=== PATIENT | female | born 1945 | race Caucasian/White ===

== ENCOUNTER 2024-09-17 19:38 | Emergency (ER) | payer OTHER, MEDICAID ==
[~2024-09-17] VITALS: Ht 157.5 cm; Wt 63.6 kg
--- NOTE | 2024-09-17 20:18 | ED.PDOC ---
Musculoskeletal HPI Comments 79-year-old female brought in by EMS presents with a chief complaint of joint pain and right sided facial pain s/p fall. Patient was standing making dinner in the kitchen when he turned to move and had a mechanical fall over a chair. Patient is now complaining of bilateral knee pain, right arm and shoulder pain. Patient did hit the right side of her face from the fall and has some significant ecchymosis on the face. Patient denies LOC. No other symptoms or modifying factors present at this time. No active bleed. Chief Complaint: Fall Injury Time Seen by MD: 20:15 Reviewed Notes: Nurses Notes, Medications, Allergies Allergies: Coded Allergies: NO KNOWN ALLERGIES (Unverified , 09/17/24) Information Source: Patient, Emergency Med Personnel Mode of Arrival: EMS Location: Right, Bilateral Extremity Location: Arm, Knee, Other (Face) Timing: Minutes Prehospital treatment: None Severity: Moderate Able to Move Extremity: No Bear Weight: No Pain: Moderate Hand Dominance: Right Mechanism: Blunt Trauma Circumstances: Fall Onset of Symptoms: After Trauma Symptoms: Swelling, Pain DVT Risk Factors: NONE Last Tetanus: Unknown Associated signs and symptoms: Shoulder pain, Arm pain, Laceration, Knee pain Past Medical History PAST MEDICAL HISTORY: Denies Surgical History: Denies all surgeries AUTOMOTIVE PARTS PERSON History: No Pertinent AUTOMOTIVE PARTS PERSON History Family History Family History: Reviewed,noncontributory to illness, No family hx of Cancer, No family hx of DM, No family hx of Heart debi, No family hx of HTN, No family hx ofKidney debi, No family hx of Liver debi, No family hx of Lung debi, No family hx of Stroke Social History Smoker: Non-Smoker Alcohol: Denies ETOH Use Drugs: Denies Drug Use Lives In: Home Constitutional: denies: chills, diaphoresis, fatigue, fever, malaise, sweats, weakness, others EENTM: reports: others (Right-sided facial pain); denies: blurred vision, double vision, ear bleeding, ear discharge, ear drainage, ear pain, ear ringing, eye pain, eye redness, hearing loss, mouth pain, mouth swelling, nasal discharge, nose bleeding, nose congestion, nose pain, photophobia, tearing, throat pain, throat swelling, voice changes Respiratory: denies: cough, hemoptysis, orthopnea, SOB at rest, shortness of breath, SOB with excertion, stridor, wheezing, others Cardiovascular: denies: chest pain, dizzy spells, diaphoresis, Dyspnea on exertion, edema, irregular heart beat, left arm pain, lightheadedness, palpitations, PND, syncope, others Gastrointestinal: denies: abdomen distended, abdominal pain, blood streaked bowels, constipated, diarrhea, dysphagia, difficulty swallowing, hematemesis, melena, nausea, poor appetite, poor fluid intake, rectal bleeding, rectal pain, vomiting, others Genitourinary: denies: abnormal vagina bleeding, burning, dyspareunia, dysuria, flank pain, frequency, hematuria, incontinence, pain, , vagina discharge, urgency, others Neurological: denies: dizziness, fainting, headache, left sided numbness, left sided weakness, numbness, paresthesia, pre-existing deficit, right sided numbness, right sided weakness, seizure, speech problems, tingling, tremors, weakness, others Musculoskeletal: reports: joint pain (BILATERAL KNEE PAIN, RIGHT humeral and shoulder pain); denies: back pain, gout, joint swelling, muscle pain, muscle stiffness, neck pain, others Integumetry: reports: laceration (To lateral aspect of the right eye region); denies: bruises, change in color, change in hair/nails, dryness, lesions, lumps, rash, wounds, others Allergic/Immunocompromised: denies: Difficulty Healing, Frequent Infections, Hives, Itching, others Hematologic/Lymphatic: denies: anemia, blood clots, easy bleeding, easy bruising, swollen glands, others Endocrine: denies: excessive hunger, excessive sweating, excessive thirst, excessive urination, flushing, intolerance to cold, intolerance to heat, unexplained weight gain, unexplained weight loss, others Psychiatric: denies: anxiety, bipolar disorder, depression, hopeless, panic disorder, schizophrenia, sleepless, suicidal, others All Other Systems: Reviewed and Negative Physical Exam General Appearance: Moderate Distress (Do global body pain concerns.), Normal HEENT: Head (Patient displays significant ecchymosis and edema throughout the right eye region with a 2 cm lateral shallow laceration noted. Edema is extensive and limits my globe evaluation. No active bleed.), Normal ENT Inspection, Pharynx Normal, TMs Normal Neck: Full Range of Motion, Non-Tender, Normal, Normal Inspection Respiratory: Chest Non-Tender, Lungs Clear, No Accessory Muscle Use, No Respiratory Distress, Normal Breath Sounds Cardiovascular: No Edema, No JVD, No Murmur, No Gallop, Normal Peripheral Pulses, Regular Rate/Rhythm Breast Exam: Deferred Gastrointestinal: No Organomegaly, Non Tender, No Pulsatile Mass, Normal Bowel Sounds, Soft Genitalia: Deferred Pelvic: Deferred Rectal: Deferred Extremities: Other (Right humerus and right shoulder diffusely tender to palpation with significant reduced range of motion. Mild developing ecchymosis noted to anterior aspect of the region. No definitive crepitus. Bilateral knees were relatively unremarkable and evaluation. No significant ecchymosis or edema. [id number] reduced range of motion at left knee. Distal neurovascularly intact bilaterally.) Musculoskeletal : Apperance: Normal Neurologic: Alert, No Motor Deficits, Normal Affect, Normal Mood, No Sensory Deficits Cerebellar Function: Normal Reflexes: Normal Skin: Dry, Normal Color, Warm Lymphatic: No Adenopathy Was a procedure done? Was a procedure done?: No Differential Diagnosis EXT Differential Diagnosis: Other (Facial fracture, facial contusion, intracranial hemorrhage, subarachnoid hemorrhage, subdural hematoma, skull fracture, shoulder fracture, humeral neck fracture, shoulder contusion, knee contusion, knee fracture) X-Ray, Labs, Meds, VS Vital Signs Date Time Temp Pulse Resp B/P (MAP) Pulse Ox O2 Delivery O2 Flow Rate FiO2 09/17/24 20:57 51 13 94 Room Air* 0 21 09/17/24 20:57 98.5 51 13 149/61 (90) 98.5 09/17/24 19:53 51 09/17/24 19:45 97.4 53 16 128/74 (92) 94 Lab Test 09/17/24 20:00 Range/Units White Blood Count 3.7 L 4.4-10.8 10^3/uL Red Blood Count 3.82 L 4.0-5.20 10^6/uL Hemoglobin 10.4 L 12.2-16.2 g/dL Hematocrit 31.3 L 36.0-46.0 % Mean Corpuscular Volume 82.0 80.0-100.0 fL Mean Corpuscular Hemoglobin 27.2 L 28.0-32.0 pg Mean Corpuscular Hemoglobin Concent 33.2 32.0-36.0 g/dL Red Cell Distribution Width 15.3 H 11.8-14.3 % Platelet Count 208 140-450 10^3/uL Mean Platelet Volume 8.2 6.9-10.8 fL Neutrophils (%) (Auto) 54.8 37.0-80.0 % Lymphocytes (%) (Auto) 28.6 10.0-50.0 % Monocytes (%) (Auto) 10.9 0.0-12.0 % Eosinophils (%) (Auto) 4.6 0.0-7.0 % Basophils (%) (Auto) 1.1 0.0-2.0 % Neutrophils # (Auto) 2.0 1.6-8.6 10 ^3/uL Lymphocytes # (Auto) 1.1 0.4-5.4 10 ^3/uL Monocytes # (Auto) 0.4 0-1.3 10 ^3/uL Eosinophils # (Auto) 0.2 0-0.8 10 ^3/uL Basophils # (Auto) 0 0-0.2 10 ^3/uL Nucleated Red Blood Cells 0.1 % Sodium Level 136 136-145 mmol/L Potassium Level 3.6 3.5-5.1 mmol/L Chloride Level 102 98-107 mmol/L Carbon Dioxide Level 27 20-31 mmol/L Anion Gap 7 5-15 Blood Urea Nitrogen 17 9-23 mg/dL Creatinine 0.73 0.550-1.02 mg/dL Glomerular Filtration Rate Calc 83 >90 mL/min BUN/Creatinine Ratio 23.3 H 10.0-20.0 Serum Glucose 135 H 74-106 mg/dL Calcium Level 9.3 8.7-10.4 mg/dL Current Medications Medications (Trade) Dose Ordered Sig/Michelle Route Start Time Stop Time Status Last Admin Ondansetron HCl (Zofran) 4 mg ONCE ONCE IV 09/17/24 21:30 09/17/24 21:33 DC 09/17/24 21:39 X-Ray, Labs, Meds, VS Comment All studies performed the ED were evaluated by me personally. Laboratories were unremarkable for any systemic process. Imaging studies revealed a slightly impacted fracture of the surgical neck of the right humerus. Additionally, a mildly displaced fracture of the patella on the left knee is noted. Femur, tibia and fibula appear intact. Most concerning is a right-sided orbital fracture through the medial and lateral wall as well as floor involvement. Opacification of the right maxillary sinuses seen without definitive cribriform plate involvement. Due to the nature of the right eye concerns, patient will need to be transferred to higher level of care. We contacted [facility] and I spoke with Dr. Rojas. Advised him of patient presentation as well as laboratory and imaging findings. He agreed to accept the patient as a transfer to higher level of care. Patient will be provided with a left knee immobilizer and right shoulder splint prior to transfer. Pain has been managed well with the facility. Time of 1ST Reevaluation: 22:20 Reevaluation 1ST: Improved Consultation: PCP Patient Education/Counseling: Diagnosis, Treatment, Prognosis Family Education/Counseling: Diagnosis, Treatment, Prognosis Departure 1 Departure Time of Disposition: 22:20 Impression: Primary Impression: Humeral surgical neck fracture Additional Impressions: Patellar sleeve fracture of left knee Orbital fracture Facial laceration Facial contusion Disposition: 02 SHORT TERM HOSPITAL Condition: Fair Discharged With: Self, Relative Critical Care Note Critical Care Time?: No I personally scribed for KAUSHIK BARBA PAC ([email or web address]) on 09/17/24 at 20:18. Electronically submitted by Jonathan Bourne ([email or web address]). KAUSHIK BARBA PAC Sep 17, 2024 20:18
[2024-09-17 20:23] LABS: Basophils # (auto) 0 10 ^3/uL (0-0.2); Basophils % (auto) 1.1 % (0.0-2.0); Eosinophils # (auto) 0.2 10 ^3/uL (0-0.8); Eosinophils % (auto) 4.6 % (0.0-7.0); Hematocrit 31.3 % (36.0-46.0); Hemoglobin 10.4 g/dL (12.2-16.2); Lymphocytes # (auto) 1.1 10 ^3/uL (0.4-5.4); Lymphocytes % (auto) 28.6 % (10.0-50.0); Mean Corpuscular Hemoglobin 27.2 pg (28.0-32.0); Mean Corpuscular Hgb Conc. 33.2 g/dL (32.0-36.0); Monocytes # (auto) 0.4 10 ^3/uL (0-1.3); Monocytes % (auto) 10.9 % (0.0-12.0); Neutrophils % (auto) 54.8 % (37.0-80.0); Nucleated Red Blood Cells % 0.1 %; Platelet Count (auto) 208 10^3/uL (140-450); Red Blood Cells 3.82 10^6/uL (4.0-5.20); Red Cell Distribution Width 15.3 % (11.8-14.3); White Blood Cell 3.7 10^3/uL (4.4-10.8)
[2024-09-17 20:32] LABS: Anion Gap 7 (5-15); Carbon Dioxide 27 mmol/L (20-31); Chloride 102 mmol/L (98-107); Potassium 3.6 mmol/L (3.5-5.1); Sodium 136 mmol/L (136-145)
[2024-09-17 20:33] LABS: Calcium 9.3 mg/dL (8.7-10.4)
[2024-09-17 20:38] LABS: BUN/Creatinine Ratio 23.3 (10.0-20.0); Blood Urea Nitrogen 17 mg/dL (9-23)
[2024-09-17 20:41] LABS: Glucose 135 mg/dL (74-106)
[2024-09-17 20:57] VITALS: PULSE 51; RESP 13; O2SAT 94
--- NOTE | 2024-09-17 21:16 | DVH ---
CLINICAL INDICATION: Fall/trauma TECHNIQUE: 2 radiographic views of the right humerus were obtained. Comparison: None FINDINGS/IMPRESSION: Slightly displaced fracture of the neck of the proximal right humerus described on previous study. Th e mid and distal humerus are normal and intact. The visualized joint space is well maintained. The alignment is anatomical. There is no radiopaque foreign body.
--- NOTE | 2024-09-17 21:16 | DVH ---
CLINICAL INDICATION: Fall/trauma TECHNIQUE: 3 radiographic views of the right shoulder were obtained. Comparison: None FINDINGS/IMPRESSION: Fracture slightly impacted the surgical neck of the proximal right humerus The visualized joint space is well maintained. The alignment is anatomical. There is no radiopaque foreign body.
--- NOTE | 2024-09-17 21:17 | DVH ---
CLINICAL INDICATION: Fall/trauma TECHNIQUE: 3 radiographic views of the left knee were obtained. Comparison: None FINDINGS/IMPRESSION: Mildly displaced fracture of the patella is noted. The femur tibia and fibula appear intact. The visualized joint space is well maintained. The alignment is anatomical. There is no radiopaque foreign body.
--- NOTE | 2024-09-17 21:20 | DVH ---
XY R KNEE 3V XRAY, INDICATION: Fall/trauma TECHNICAL DATA: Frontal , oblique and lateral views were obtained of the right knee. COMPARISON: None Findings/impression: No acute fracture or dislocation. Moderate tricompartmental osteoarthritic degenerative changes. Mild chondrocalcinosis. No significant knee joint effusion. No radiopaque foreign objects.
--- NOTE | 2024-09-17 21:37 | DVH ---
EXAM: CT HEAD WITHOUT CONTRAST INDICATION: Fall/facial trauma TECHNIQUE: CT of the head without intravenous contrast. Radiation Dose Information: CT Dose: CTDI volume is 66.95 mGy. Dose-length product is 2426.19 mGy*cm The dose indicators for CT are the volume Computed Tomography (CT) Dose Index (CTDIvol) and the Dose Length Product (DLP), and are measured in units of mGy and mGy-cm, respectively. These indicators are not patient dose, but values generated from the CT scanner acquisition factors. The report includes radiation exposure data for exposures received during this examination. COMPARISON: None FINDINGS: There is no evidence of acute intracranial hemorrhage, extra-axial collection, mass effect, midline s hift, herniation or hydrocephalus. The ventricles, sulci and cisterns are age appropriate. The portillo-white differentiation is intact. Patchy periventricular and subcortical white matter hypoattenuation is nonspecific but may be related to small vessel ischemic disease. The visualized paranasal sinuses and mastoid air cells are clear. Marked soft tissue swelling over the right eye with small amount of subcutaneous emphysema in the sof t tissues lateral to the rim of the orbit. There appears to be a minimally displaced fracture of the lateral wall of the right orbit. The soft tissue swelling is preseptal. There is also fracture thro ugh the medial wall of the right orbit this appears to be inferior to the cribriform plate. There May also be a fracture through the floor of the right orbit there is opacification of the right maxillar y sinus. IMPRESSION: 1. No acute intracranial hemorrhage. 2. Preseptal soft tissue swelling over the right eye with subcutaneous air just lateral to the latera l rim of the orbit. There is a fracture through the medial and lateral wall the right orbit in possib ly the floor of the orbit. Opacification of the right maxillary sinus is seen. The cribriform plate a ppears uninvolved.
[2024-09-17] MEDS: ONDANSETRON HCL 4 MG/2 ML VIAL IV ONE ×2 (21:39→23:28)
--- NOTE | 2024-09-17 22:01 | DVH ---
HISTORY: Fall/facial trauma right-sided TECHNIQUE: Nonenhanced axial images through the facial bones with coronal and sagittal MPR. Radiation Dose Information: CT Dose: CTDI volume is 57 mGy. Dose-length product is 910 mGy*cm COMPARISON: None Findings/ IMPRESSION: Anterior and lateral fractures of the right maxillary sinus wall. There is near complete opacificatio n of the right maxillary sinus which is concerning for blood products. Mildly displaced fracture of t he right lateral and inferior orbital spence with associated postseptal thickening adjacent to the wal l fractures suggestive of hematoma. No evidence of extraocular muscle entrapment. No other obvious fr actures are identified. There is moderate to severe right periorbital soft tissue edema / hematoma wh ich extends inferiorly to the right face soft tissue. There is bilateral enlargement of the superior rectus muscle of the orbits. This may be related to an underlying metabolic or musculoskeletal proces s. Consider further evaluation with nonemergent contrast-enhanced MRI orbits. Moderate to severe deg enerative changes of the visualized cervical spine. Partially visualized biapical lungs are clear. Pa rtially visualized intracranial structures demonstrate no acute abnormalities. Radiation optimization: All CT scans at this facility use at least one of these dose optimization cabrera hniques: automated exposure control mA and/or kV adjustment per patient size (includes targeted exam s where dose is matched to clinical indication) or iterative reconstruction.
[2024-09-17] MEDS: HYDROmorphone HCL 2 MG/ML VL/or syr IV ONE ×2 (22:14→23:27)
[2024-09-17] MEDS: METOCLOPRAMIDE HCL 5MG/ml INJ 2ml VIAL IV ONE (22:31)
[2024-09-17 22:58] VITALS: TEMP 98; O2SAT 95
[2024-09-17 23:27] VITALS: BP 176/92; PULSE 51; RESP 12
--- NOTE | 2024-09-18 04:25 | ECG ---
[facility] Test Date: 2024-09-17 Test Time: 19:53:46 Pat Name: ELISSA EDDY Department: ED Room: Gender: F Surgical Aide: : 1945 Requested By: KAUSHIK BARBA Order Number: [id number] Reading MD: Eduardo Holland Measurements Intervals [place] Rate: 51 P: 61 MT: 150 QRS: -53 QRSD: 94 T: 1 QT: 529 QTc: 488 Interpretive Statements Sinus rhythm Left anterior fascicular block Abnormal R-wave progression, late transition Borderline prolonged QT interval Electronically Signed On 09-20-2024 8:51:33 PST by Eduardo Holland Please click the below link to view image of tracing.
== END 2024-09-17 21:58 | disposition short-term general hospital (02) ==
LOC: EDBD 19:38 → ER 19:38
DX: S42.211A Unspecified displaced fracture of surgical neck of right humerus, initial encounter for closed fracture (principal); S82.002A Unspecified fracture of left patella, initial encounter for closed fracture; S02.841A Fracture of lateral orbital wall, right side, initial encounter for closed fracture; S02.31XA Fracture of orbital floor, right side, initial encounter for closed fracture; S01.81XA Laceration without foreign body of other part of head, initial encounter; Y99.8 Other external cause status; W07.XXXA Fall from chair, initial encounter; Y93.89 Activity, other specified; Y92.89 Other specified places as the place of occurrence of the external cause
CPT/HCPCS: 36415; 70450; 70486; 73030; 73060; 73562; 80048; 85025; 93005; 96374; 96375; 96376; 99285; J1171; J2405; J2765

== ENCOUNTER 2024-12-01 17:32 | Inpatient (IN) | payer OTHER, MEDICAID ==
[~2024-12-01] VITALS: Ht 165.1 cm; Wt 51.0 kg
--- NOTE | 2024-12-01 18:09 | ED.PDOC ---
History of Present Illness HPI Comments 79F BIBA w/ prior Hx of a UTI which might be associated to the c/c of ABD pain. EMS reports on the pt being recently treated for a UTI and stopped taking her medications recently and she started to have suprapubic pain w/ cloudy urine. Pt had a HR on scene of 66, BP-122/71, and a SAT level of 96% RA. Denies chills, fever, N/V/D, SOB, CP or no other associated symptoms, modifiers, recent injuries or sick contacts at this time. Patient states she has recently been on multiple rounds of antibiotics due to a antibiotic resistant UTI. Chief Complaint: Urinary Time Seen by MD: 17:55 Primary Care Provider: DALIA Contreras Notes: Nurses Notes, Material Worker Notes, Medications, Allergies Allergies: Coded Allergies: NO KNOWN ALLERGIES (Unverified , 09/17/24) Information Source: Patient, Emergency Med Personnel Mode of Arrival: EMS Severity: Moderate Timing: Hours Duration: Since onset Prehospital treatment: None Past Medical History PAST MEDICAL HISTORY: UTI'S Past Medical History (Other): FIbromyalgia and Lupus Surgical History: Denies all surgeries FORENSIC PSYCHIATRIST History: No Pertinent FORENSIC PSYCHIATRIST History Family History Family History: Reviewed,noncontributory to illness, Unknown Social History Smoker: Non-Smoker Alcohol: Denies ETOH Use Drugs: Denies Drug Use Lives In: Home Constitutional: denies: chills, diaphoresis, fatigue, fever, malaise, sweats, weakness, others EENTM: denies: blurred vision, double vision, ear bleeding, ear discharge, ear drainage, ear pain, ear ringing, eye pain, eye redness, hearing loss, mouth pain, mouth swelling, nasal discharge, nose bleeding, nose congestion, nose pain, photophobia, tearing, throat pain, throat swelling, voice changes, others Respiratory: denies: cough, hemoptysis, orthopnea, SOB at rest, shortness of breath, SOB with excertion, stridor, wheezing, others Cardiovascular: denies: chest pain, dizzy spells, diaphoresis, Dyspnea on exertion, edema, irregular heart beat, left arm pain, lightheadedness, palpitations, PND, syncope, others Gastrointestinal: reports: abdominal pain; denies: abdomen distended, blood streaked bowels, constipated, diarrhea, dysphagia, difficulty swallowing, hematemesis, melena, nausea, poor appetite, poor fluid intake, rectal bleeding, rectal pain, vomiting, others Genitourinary: reports: burning; denies: abnormal vagina bleeding, dyspareunia, dysuria, flank pain, frequency, hematuria, incontinence, pain, , vagina discharge, urgency, others Neurological: denies: dizziness, fainting, headache, left sided numbness, left sided weakness, numbness, paresthesia, pre-existing deficit, right sided numbness, right sided weakness, seizure, speech problems, tingling, tremors, weakness, others Musculoskeletal: denies: back pain, gout, joint pain, joint swelling, muscle pain, muscle stiffness, neck pain, others Integumetry: denies: bruises, change in color, change in hair/nails, dryness, laceration, lesions, lumps, rash, wounds, others Allergic/Immunocompromised: denies: Difficulty Healing, Frequent Infections, Hives, Itching, others Hematologic/Lymphatic: denies: anemia, blood clots, easy bleeding, easy bruising, swollen glands, others Endocrine: denies: excessive hunger, excessive sweating, excessive thirst, excessive urination, flushing, intolerance to cold, intolerance to heat, unexplained weight gain, unexplained weight loss, others Psychiatric: denies: anxiety, bipolar disorder, depression, hopeless, panic disorder, schizophrenia, sleepless, suicidal, others All Other Systems: Reviewed and Negative Physical Exam General Appearance: Mild Distress (Due to some abdominal, suprapubic and urinary discomfort.), Normal HEENT: Normal ENT Inspection, Pharynx Normal, TMs Normal Neck: Full Range of Motion, Non-Tender, Normal, Normal Inspection Respiratory: Chest Non-Tender, Lungs Clear, No Accessory Muscle Use, No Respiratory Distress, Normal Breath Sounds Cardiovascular: No Edema, No JVD, No Murmur, No Gallop, Normal Peripheral Pulses, Regular Rate/Rhythm Breast Exam: Deferred Gastrointestinal: No Pulsatile Mass, Normal Bowel Sounds, Soft Genitalia: Deferred Pelvic: Deferred Rectal: Deferred Extremities: No calf tenderness, Normal capillary refill, Normal inspection, Normal range of motion, Non-tender, No pedal edema Musculoskeletal : Apperance: Normal Neurologic: Alert, No Motor Deficits, Normal Affect, Normal Mood, No Sensory Deficits Cerebellar Function: Normal Reflexes: Normal Skin: Dry, Normal Color, Warm Lymphatic: No Adenopathy Was a procedure done? Was a procedure done?: No Differential Dx Considerations may include: Antibiotic resistant UTI, electrolyte abnormality, sepsis X-Ray, Labs, Meds, VS Vital Signs Date Time Temp Pulse Resp B/P (MAP) Pulse Ox O2 Delivery O2 Flow Rate FiO2 12/01/24 17:50 97.6 66 18 122/71 (88) 96 97.6 12/01/24 17:45 66 Lab Test 12/01/24 18:14 Range/Units White Blood Count 3.3 L 4.4-10.8 10^3/uL Red Blood Count 3.75 L 4.0-5.20 10^6/uL Hemoglobin 9.5 L 12.2-16.2 g/dL Hematocrit 29.1 L 36.0-46.0 % Mean Corpuscular Volume 77.8 L 80.0-100.0 fL Mean Corpuscular Hemoglobin 25.3 L 28.0-32.0 pg Mean Corpuscular Hemoglobin Concent 32.5 32.0-36.0 g/dL Red Cell Distribution Width 18.4 H 11.8-14.3 % Platelet Count 356 140-450 10^3/uL Mean Platelet Volume 7.8 6.9-10.8 fL Neutrophils (%) (Auto) 42.4 37.0-80.0 % Lymphocytes (%) (Auto) 41.8 10.0-50.0 % Monocytes (%) (Auto) 12.1 H 0.0-12.0 % Eosinophils (%) (Auto) 2.5 0.0-7.0 % Basophils (%) (Auto) 1.2 0.0-2.0 % Neutrophils # (Auto) 1.4 L 1.6-8.6 10 ^3/uL Lymphocytes # (Auto) 1.4 0.4-5.4 10 ^3/uL Monocytes # (Auto) 0.4 0-1.3 10 ^3/uL Eosinophils # (Auto) 0.1 0-0.8 10 ^3/uL Basophils # (Auto) 0 0-0.2 10 ^3/uL Nucleated Red Blood Cells 0.1 % Sodium Level 136 136-145 mmol/L Potassium Level 2.7 L 3.5-5.1 mmol/L Chloride Level 102 98-107 mmol/L Carbon Dioxide Level 26 20-31 mmol/L Anion Gap 8 5-15 Blood Urea Nitrogen 6 L 9-23 mg/dL Creatinine 0.57 0.550-1.02 mg/dL Glomerular Filtration Rate Calc 92 >90 mL/min BUN/Creatinine Ratio 10.5 10.0-20.0 Serum Glucose 84 74-106 mg/dL Lactic Acid Level 1.2 0.4-2.0 mmol/L Calcium Level 10.0 8.7-10.4 mg/dL Total Bilirubin 0.3 0.2-1.0 mg/dL Aspartate Amino Transferase (AST) 18 13-40 U/L Alanine Aminotransferase (ALT) 16 7-40 U/L Alkaline Phosphatase 58 46-116 U/L Troponin I High Sensitivity 6 </=34 ng/L Total Protein 6.6 5.7-8.2 g/dL Albumin 4.3 3.2-4.8 g/dL X-Ray, Labs, Meds, VS Comment All studies performed the ED were evaluated by me personally. EKG revealed a sinus rhythm with a rate of 66. Borderline short TN interval, left atrial fascicular block and RSR in V1 to V2. TN interval of 111 and QT interval of 432. Laboratories studies revealed an anemia as well as a hypokalemia. Urine was pending at time of this note. Due to the patient's multiple rounds of outpatient antibiotics. Patient will be admitted for management of her antibiotic resistant urinary tract infection. Urine culture has been ordered prior to admission. Time of 1ST Reevaluation: 20:50 Reevaluation 1ST: Unchanged Consultation: PCP Patient Education/Counseling: Diagnosis, Treatment, Prognosis Family Education/Counseling: Diagnosis, Treatment, No Family Present Departure 1 Departure Time of Disposition: 20:50 Impression: Primary Impression: Antibiotic-resistant bacterial infection Additional Impressions: Anemia Hypokalemia Disposition: ADMITTED INPATIENT Condition: Stable Discharged With: Self Critical Care Note Critical Care Time?: No Stability Stability form required: No Heart Score Heart Score: Heart Score Response (Comments) Value History N/A 0 EKG N/A 0 Age N/A 0 Risk Factors N/A 0 Troponin N/A 0 Total 0 I personally scribed for KAUSHIK BARBA PAC ([email or web address]) on 12/01/24 at 18:09. Electronically submitted by Baljit Carrizales ([email or web address]). KAUSHIK BARBA PAC Dec 01, 2024 18:09
--- NOTE | 2024-12-01 18:28 | ECG ---
[facility] Test Date: 2024-12-01 Test Time: 17:42:28 Pat Name: ELISSA EDDY Department: ED Room: 0250 Gender: F Conference Reservationist: PAMELA : 1945 Requested By: KAUSHIK BARBA Order Number: [id number] Reading MD: Eduardo Holland Measurements Intervals [place] Rate: 66 P: -1 NC: 111 QRS: -54 QRSD: 93 T: 57 QT: 432 QTc: 453 Interpretive Statements Sinus rhythm Borderline short NC interval Left anterior fascicular block RSR' in V1 or V2, right VCD or RVH Electronically Signed On 12-06-2024 20:50:17 PDT by Eduardo Holland Please click the below link to view image of tracing.
[2024-12-01 18:42] LABS: Basophils # (auto) 0 10 ^3/uL (0-0.2); Basophils % (auto) 1.2 % (0.0-2.0); Eosinophils # (auto) 0.1 10 ^3/uL (0-0.8); Eosinophils % (auto) 2.5 % (0.0-7.0); Hematocrit 29.1 % (36.0-46.0); Hemoglobin 9.5 g/dL (12.2-16.2); Lymphocytes # (auto) 1.4 10 ^3/uL (0.4-5.4); Lymphocytes % (auto) 41.8 % (10.0-50.0); Mean Corpuscular Hemoglobin 25.3 pg (28.0-32.0); Mean Corpuscular Hgb Conc. 32.5 g/dL (32.0-36.0); Mean Corpuscular Volume 77.8 fL (80.0-100.0); Monocytes # (auto) 0.4 10 ^3/uL (0-1.3); Monocytes % (auto) 12.1 % (0.0-12.0); Neutrophils # (auto) 1.4 10 ^3/uL (1.6-8.6); Neutrophils % (auto) 42.4 % (37.0-80.0); Nucleated Red Blood Cells % 0.1 %; Platelet Count (auto) 356 10^3/uL (140-450); Red Blood Cells 3.75 10^6/uL (4.0-5.20); Red Cell Distribution Width 18.4 % (11.8-14.3); White Blood Cell 3.3 10^3/uL (4.4-10.8)
[2024-12-01 18:58] LABS: Alanine Aminotransferase 16 U/L (7-40); Albumin 4.3 g/dL (3.2-4.8); Alkaline Phosphatase 58 U/L (46-116); Anion Gap 8 (5-15); Aspartate Aminotransferase 18 U/L (13-40); BUN/Creatinine Ratio 10.5 (10.0-20.0); Bilirubin, Total 0.3 mg/dL (0.2-1.0); Carbon Dioxide 26 mmol/L (20-31); Chloride 102 mmol/L (98-107); Glucose 84 mg/dL (74-106); Sodium 136 mmol/L (136-145); Total Protein 6.6 g/dL (5.7-8.2)
[2024-12-01 19:03] LABS: Blood Urea Nitrogen 6 mg/dL (9-23); Potassium 2.7 mmol/L (3.5-5.1)
[2024-12-01 22:39] LABS: Urine Bacteria FEW /hpf (None Seen); Urine Blood Negative /uL (Negative); Urine Clarity Clear (Clear); Urine Color Dark-Yellow (Yellow); Urine Protein, UAD Negative (Negative); Urine Squamous Epithelial Cell FEW /hpf (<5); Urine Urobilinogen Normal (Negative); Urine WBC 2 /HPF (0-5)
[2024-12-01] MEDS ORDERED: ACETAMINOPHEN 325 MG TAB PO PRN (23:00)
[2024-12-01] MEDS ORDERED: ONDANSETRON HCL 4 MG/2 ML VIAL IV PRN (23:00)
[2024-12-01 23:25] VITALS: PULSE 57; RESP 20; O2SAT 100
[2024-12-02] VITALS (7 sets, daily range): BP systolic 116–148; BP diastolic 60–88; PULSE 66–72; RESP 14–18; TEMP 97.4–98.6; O2SAT 92–99
[2024-12-02] MEDS: cefTRIAXone 1GM/50ML D5W 50 ML IV ONE (01:23)
--- NOTE | 2024-12-02 01:23 | DVHHP2 ---
History of Present Illness Reason for Visit: urinary symptoms History of Present Illness 79-year-old female presents for evaluation of urinary complaints. Patient reports recently being treated for a urinary tract infection and completing a course of antibiotics. She states having lower abdominal pain with associated urgency and dysuria. No fever or chills. No other acute complaints. Past Medical History Urinary tract infection, lupus Past Surgical History Denies Family History Noncontributory Smoke: No ALCOHOL: none Drugs: None Lives: with Family Review of Systems Review of Systems Review of systems are currently negative otherwise addressed in HPI. Allergies: Coded Allergies: NO KNOWN ALLERGIES (Unverified , 09/17/24) Medications Current Medications Medications Dose Ordered Sig/Michelle Route Start Time Stop Time Status Last Admin Dose Admin Ceftriaxone Sodium 50 ml @ 100 mls/hr DAILY@09 IV 12/02/24 09:00 Apixaban 2.5 mg BID PO 12/02/24 10:00 Duloxetine HCl 60 mg DAILY PO 12/02/24 10:00 Ondansetron HCl 4 mg Q4HP PRN IV 12/01/24 23:00 Acetaminophen 650 mg Q6HP PRN PO 12/01/24 23:00 Exam Vital Signs Vital Signs Date Time Temp Pulse Resp B/P (MAP) Pulse Ox O2 Delivery O2 Flow Rate FiO2 12/01/24 23:25 98.6 57 20 144/64 (90) 100 98.6 12/01/24 23:25 Room Air* 0 21 Exam Gen: 79-year-old female in no apparent distress. Skin: Warm, dry, normal color and texture, no rash. HEENT: Normocephalic atraumatic, mucous membranes moist and pink. Neck: Cervical and supraclavicular nodes normal without enlargement, trachea is midline, thyroid gland is normal without masses. Pulmonary: Clear to auscultation and percussion bilaterally. Cardiac: Regular rate and rhythm. No murmur Abdomen: Soft, nontender, nondistended, bowel sounds present all 4 quadrants, no guarding, no rigidity, no organomegaly. Extremities: No cyanosis, clubbing, no edema Neuro: Cranial nerves II through XII grossly intact, normal affect and speech, no focal motor deficits. Labs/Xrays Labs Test 12/01/24 22:00 12/01/24 18:14 Range/Units Urine Color Dark-yellow Yellow Urine Clarity Clear Clear Urine pH 6.0 5.0-9.0 Urine Specific [place] 1.010 1.001-1.035 Urine Protein Negative Negative Urine Ketones Negative Negative Urine Blood Negative Negative /uL Urine Nitrite Negative Negative Urine Bilirubin Negative Negative Urine Urobilinogen Normal Negative mg/dL Urine Leukocyte Esterase Negative Negative /uL Urine RBC 1 0 - 4 /hpf Urine Microscopic WBC 2 0-5 /HPF Urine Squamous Epithelial Cells Few <5 /hpf Urine Bacteria Few H None Seen /hpf Urine Glucose Normal Normal mg/dL White Blood Count 3.3 L 4.4-10.8 10^3/uL Red Blood Count 3.75 L 4.0-5.20 10^6/uL Hemoglobin 9.5 L 12.2-16.2 g/dL Hematocrit 29.1 L 36.0-46.0 % Mean Corpuscular Volume 77.8 L 80.0-100.0 fL Mean Corpuscular Hemoglobin 25.3 L 28.0-32.0 pg Mean Corpuscular Hemoglobin Concent 32.5 32.0-36.0 g/dL Red Cell Distribution Width 18.4 H 11.8-14.3 % Platelet Count 356 140-450 10^3/uL Mean Platelet Volume 7.8 6.9-10.8 fL Neutrophils (%) (Auto) 42.4 37.0-80.0 % Lymphocytes (%) (Auto) 41.8 10.0-50.0 % Monocytes (%) (Auto) 12.1 H 0.0-12.0 % Eosinophils (%) (Auto) 2.5 0.0-7.0 % Basophils (%) (Auto) 1.2 0.0-2.0 % Neutrophils # (Auto) 1.4 L 1.6-8.6 10 ^3/uL Lymphocytes # (Auto) 1.4 0.4-5.4 10 ^3/uL Monocytes # (Auto) 0.4 0-1.3 10 ^3/uL Eosinophils # (Auto) 0.1 0-0.8 10 ^3/uL Basophils # (Auto) 0 0-0.2 10 ^3/uL Nucleated Red Blood Cells 0.1 % Sodium Level 136 136-145 mmol/L Potassium Level 2.7 L 3.5-5.1 mmol/L Chloride Level 102 98-107 mmol/L Carbon Dioxide Level 26 20-31 mmol/L Anion Gap 8 5-15 Blood Urea Nitrogen 6 L 9-23 mg/dL Creatinine 0.57 0.550-1.02 mg/dL Glomerular Filtration Rate Calc 92 >90 mL/min BUN/Creatinine Ratio 10.5 10.0-20.0 Serum Glucose 84 74-106 mg/dL Lactic Acid Level 1.2 0.4-2.0 mmol/L Calcium Level 10.0 8.7-10.4 mg/dL Total Bilirubin 0.3 0.2-1.0 mg/dL Aspartate Amino Transferase (AST) 18 13-40 U/L Alanine Aminotransferase (ALT) 16 7-40 U/L Alkaline Phosphatase 58 46-116 U/L Troponin I High Sensitivity 6 </=34 ng/L Total Protein 6.6 5.7-8.2 g/dL Albumin 4.3 3.2-4.8 g/dL Assessment/Plan Assessment/Plan Assessment Complicated urinary tract infection Hypokalemia Plan Admit the patient to [facility] to the hospitalist Erik Urine bacterial culture pending Replete electrolytes Continue treatment per orders. Plan discussed with: Patient My Orders Orders - DAVID JENKINS Procedure Category Date Status Time Ceftriaxone 1gm/50ml PHA 12/02/24 In Process D5w (Rocephin) 09:00 Apixaban (Eliquis) PHA 12/02/24 In Process 10:00 Duloxetine Hcl PHA 12/02/24 In Process Capsule (Cymbalta 10:00 Regular Diet DIET 12/02/24 Transmitted Breakfast Admit ADMIT 12/01/24 Transmitted 22:56 Ondansetron Hcl PHA 12/01/24 In Process (Zofran) 23:00 Condition: Stable CANELO 12/01/24 In Process 22:56 Acetaminophen Tablet PHA 12/01/24 In Process (Tylenol Tablet) 23:00 Bedrest With Bathroom CANELO 12/01/24 In Process Privileg 22:56 Date of Service: Dec 01, 2024 Billing Provider: DAVID JENKINS Common Visit Codes: [id number] INP/OBS CARE (MOD) DAVID JENKINS Dec 02, 2024 01:23
[2024-12-02] MEDS: POTASSIUM CHL 20 Meq TABLET PO ONE (01:34)
[2024-12-02] MEDS: POTASSIUM EFFERVESENT TAB 25 MEQ PO ONE (02:12)
[2024-12-02] MEDS ORDERED: ALPR0.5T PO (06:53)
[2024-12-02] MEDS ORDERED: GABA300C PO (06:53)
[2024-12-02] MEDS: cefTRIAXone 1GM/50ML D5W 50 ML IV SCH (10:37)
[2024-12-02] MEDS: APIXABAN 2.5 MG TAB PO SCH (10:37)
[2024-12-02] MEDS: DULoxetine HCL 30 MG CAP PO SCH (10:37)
--- NOTE | 2024-12-02 12:16 | DVHPN2 ---
Changes from previous H/P or p: No Changes Objective Vitals Vital Signs Date Time Temp Pulse Resp B/P (MAP) Pulse Ox O2 Delivery O2 Flow Rate FiO2 12/02/24 09:00 98.0 67 16 127/64 (85) 95 98.0 12/02/24 08:00 Room Air* 0 21 Intake/Output Intake and Output 12/02/24 07:00 Intake Total 250 ml Balance 250 ml Intake Oral 250 ml # Voids 2 Medications Current Medications Medications Dose Ordered Sig/Michelle Route Start Time Stop Time Status Last Admin Dose Admin Ceftriaxone Sodium 50 ml @ 100 mls/hr DAILY@09 IV 12/02/24 09:00 12/02/24 10:37 100 MLS/HR Apixaban 2.5 mg BID PO 12/02/24 10:00 12/02/24 10:37 2.5 MG Duloxetine HCl 60 mg DAILY PO 12/02/24 10:00 12/02/24 10:37 60 MG Ondansetron HCl 4 mg Q4HP PRN IV 12/01/24 23:00 Acetaminophen 650 mg Q6HP PRN PO 12/01/24 23:00 Laboratory Results Laboratory Tests 12/01/24 18:14 Chemistry Test 12/01/24 18:14 Albumin 4.3 g/dL (3.2-4.8) Calcium Level 10.0 mg/dL (8.7-10.4) Total Protein 6.6 g/dL (5.7-8.2) LFT Test 12/01/24 18:14 Alanine Aminotransferase (ALT) 16 U/L (7-40) Alkaline Phosphatase 58 U/L (46-116) Aspartate Amino Transferase (AST) 18 U/L (13-40) Total Bilirubin 0.3 mg/dL (0.2-1.0) Urinalysis Test 12/01/24 22:00 Urine Color Dark-yellow (Yellow) Urine Clarity Clear (Clear) Urine pH 6.0 (5.0-9.0) Urine Specific [place] 1.010 (1.001-1.035) Urine Protein Negative (Negative) Urine Ketones Negative (Negative) Urine Blood Negative /uL (Negative) Urine Nitrite Negative (Negative) Urine Bilirubin Negative (Negative) Urine Urobilinogen Normal mg/dL (Negative) Urine Leukocyte Esterase Negative /uL (Negative) Urine RBC 1 /hpf (0 - 4) Urine Microscopic WBC 2 /HPF (0-5) Urine Squamous Epithelial Cells Few /hpf (<5) Urine Bacteria Few /hpf (None Seen) H Urine Glucose Normal mg/dL (Normal) Labs and/or images reviewed: Labs reviewed by me, Image(s) reviewed by me Assessment/Plan Assessment/Plan Sepsis secondary to acute urinary tract infection Acute urinary tract infection: Blood cultures urine cultures Rocephin History of lupus Acute hypokalemia potassium 2.7: Replace potassium Depression: Continue home medications cymbalta On Eliquis ? reason Chronic pain syndrome: Percocet Anxiety: Xanax Patient was recently in [place] rehab Plan discussed with: Patient My Orders Orders - KEVAN MENJIVAR MD Procedure Category Date Status Time Blood Culture MARYJANE 12/02/24 Verified 12:05 Date of Service: Dec 02, 2024 Billing Provider: KEVAN MENJIVAR MD Common Visit Codes: [id number] INP/OBS CARE(HIGH) KEVAN MENJIVAR MD Dec 02, 2024 12:16
[2024-12-02] MEDS: OXYCODONE W/ ACETAMINOPHEN 5/325MG TABLET PO PRN (12:41)
[2024-12-02] MEDS: ALPRAZolam 0.5 MG TAB PO PRN (13:14)
[2024-12-03] VITALS (8 sets, daily range): BP systolic 125–145; BP diastolic 55–75; PULSE 59–81; RESP 14–18; TEMP 97.4–98.6; O2SAT 94–99
[2024-12-03 07:32] LABS: Basophils # (auto) 0 10 ^3/uL (0-0.2); Basophils % (auto) 0.9 % (0.0-2.0); Eosinophils # (auto) 0.2 10 ^3/uL (0-0.8); Eosinophils % (auto) 7.4 % (0.0-7.0); Hematocrit 28.6 % (36.0-46.0); Hemoglobin 9.2 g/dL (12.2-16.2); Lymphocytes # (auto) 1.3 10 ^3/uL (0.4-5.4); Lymphocytes % (auto) 43.9 % (10.0-50.0); Mean Corpuscular Hemoglobin 24.8 pg (28.0-32.0); Mean Corpuscular Hgb Conc. 32.2 g/dL (32.0-36.0); Mean Corpuscular Volume 77.1 fL (80.0-100.0); Monocytes # (auto) 0.4 10 ^3/uL (0-1.3); Monocytes % (auto) 12.4 % (0.0-12.0); Neutrophils % (auto) 35.4 % (37.0-80.0); Nucleated Red Blood Cells % 0.1 %; Platelet Count (auto) 311 10^3/uL (140-450); Red Blood Cells 3.71 10^6/uL (4.0-5.20); Red Cell Distribution Width 18.3 % (11.8-14.3); White Blood Cell 2.9 10^3/uL (4.4-10.8)
[2024-12-03 07:44] LABS: Anion Gap 8 (5-15); Carbon Dioxide 26 mmol/L (20-31); Chloride 105 mmol/L (98-107); Sodium 139 mmol/L (136-145)
[2024-12-03 07:45] LABS: Calcium 9.4 mg/dL (8.7-10.4)
[2024-12-03 07:50] LABS: BUN/Creatinine Ratio 12.2 (10.0-20.0); Glucose 89 mg/dL (74-106)
[2024-12-03 07:54] LABS: Blood Urea Nitrogen 6 mg/dL (9-23); Potassium 2.9 mmol/L (3.5-5.1)
--- NOTE | 2024-12-03 09:57 | DVHPN2 ---
Reviewed: Care Plan, H&P, Labs, Medications, Previous Orders, Radiology Changes from previous H/P or p: No Changes Objective Vitals Vital Signs Date Time Temp Pulse Resp B/P (MAP) Pulse Ox O2 Delivery O2 Flow Rate FiO2 12/03/24 05:00 98.3 59 14 129/68 (88) 96 98.3 12/02/24 20:00 Room Air* 0 21 Intake/Output Intake and Output 12/03/24 07:00 Intake Total 1850 ml Output Total 1000 ml Balance 850 ml Intake Oral 1800 ml IV Total 50 ml Output Urine Total 1000 ml # Voids 3 # Bowel Movements 3 Medications Current Medications Medications Dose Ordered Sig/Michelle Route Start Time Stop Time Status Last Admin Dose Admin Ceftriaxone Sodium 50 ml @ 100 mls/hr DAILY@09 IV 12/02/24 09:00 12/03/24 09:35 100 MLS/HR Apixaban 2.5 mg BID PO 12/02/24 10:00 12/03/24 09:35 2.5 MG Duloxetine HCl 60 mg DAILY PO 12/02/24 10:00 12/03/24 09:35 60 MG Ondansetron HCl 4 mg Q4HP PRN IV 12/01/24 23:00 Acetaminophen 650 mg Q6HP PRN PO 12/01/24 23:00 Alprazolam 1 mg Q8HPRN PRN PO 12/02/24 12:30 12/03/24 09:35 1 MG Oxycodone/ Acetaminophen 1 tab Q6HP PRN PO 12/02/24 12:30 12/02/24 21:43 1 TAB Laboratory Results Laboratory Tests 12/03/24 06:54 Chemistry Test 12/03/24 06:54 Calcium Level 9.4 mg/dL (8.7-10.4) Urinalysis Test 12/01/24 22:00 Urine Color Dark-yellow (Yellow) Urine Clarity Clear (Clear) Urine pH 6.0 (5.0-9.0) Urine Specific [place] 1.010 (1.001-1.035) Urine Protein Negative (Negative) Urine Ketones Negative (Negative) Urine Blood Negative /uL (Negative) Urine Nitrite Negative (Negative) Urine Bilirubin Negative (Negative) Urine Urobilinogen Normal mg/dL (Negative) Urine Leukocyte Esterase Negative /uL (Negative) Urine RBC 1 /hpf (0 - 4) Urine Microscopic WBC 2 /HPF (0-5) Urine Squamous Epithelial Cells Few /hpf (<5) Urine Bacteria Few /hpf (None Seen) H Urine Glucose Normal mg/dL (Normal) Labs and/or images reviewed: Labs reviewed by me, Image(s) reviewed by me Assessment/Plan Assessment/Plan Sepsis secondary to acute urinary tract infection Acute urinary tract infection: Blood cultures urine cultures Rocephin History of lupus Acute hypokalemia potassium 2.7: Replace potassium consult Depression: Continue home medications cymbalta 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 Chronic pain syndrome: Percocet History of fall August 2024 seen in [facility] transfer to [facility] with fracture right orbit right shoulder and left knee History of dysphagia with G-tube placement and subsequent removal Anxiety: Xanax Patient was recently in [place] rehab C diff colitis: Imodium stool for C diff PCP: DR Tolentino Patient's granddaughter Kristen who has POA [phone] at bedside Patient on [facility] Critical care time 70 minutes including discussion with the family for 20 minutes Patient is full code Advanced care planning time 20 minutes Plan discussed with: Patient My Orders Orders - KEVAN MENJIVAR MD Procedure Category Date Status Time Blood Culture MARYJANE 12/02/24 In Process 12:05 Alprazolam Tablet PHA 12/02/24 In Process (Xanax Tablet) 12:30 Oxycodone W/ Acet PHA 12/02/24 In Process 5/325mg Tab (Percocet 12:30 Date of Service: Dec 03, 2024 Billing Provider: KEVAN MENJIVAR MD Common Visit Codes: [id number] CARE 30-74 MIN KEVAN MENJIVAR MD Dec 03, 2024 09:57
[2024-12-03] MEDS ORDERED: POTASSIUM EFFERVESENT TAB 25 MEQ GT SCH (10:00)
[2024-12-03] MEDS ORDERED: LOPERAMIDE HCL 2 MG CAP/TAB PO PRN (10:00)
--- NOTE | 2024-12-03 10:34 | DVHINCON2 ---
Date of service: Dec 03, [address] Wills Reason for Consultation Hypokalemia History of Present Illness Patient is 79-year-old with past medical history of anxiety, chronic pain, osteoarthritis and recurrent urinary tract infection is admitted for suprapubic pain after with recently treated for urinary tract infection. On admission patient found to have low potassium of 2.7 nephrology is consulted for hypokalemia Past Medical History Urinary tract infection recurrent, osteoarthritis, anxiety, pelvic pain Past Surgical History Orthopedic procedures Allergies: Coded Allergies: NO KNOWN ALLERGIES (Unverified , 09/17/24) Home Meds Reported Medications Alprazolam (Xanax) 0.5 Mg Tb, 1 TAB PO TID, #90 TAB 12/02/24 Gabapentin (Neurontin) 300 Mg Cap, 1 CAP PO TID, #90 CAP 3 Refills 12/02/24 Current Medications Current Medications Medications (Trade) Dose Ordered Sig/Michelle Route PRN Reason Start Time Stop Time Status Last Admin Loperamide HCl (Imodium Capsule) 2 mg Q4HR PRN PO FOR DIARRHEA 12/03/24 10:00 Oxycodone/ Acetaminophen (Percocet 5/ 325MG Tablet) 1 tab Q6HP PO 12/03/24 10:00 12/03/24 11:38 Gabapentin (Neurontin Capsule) 300 mg TID PO 12/03/24 14:00 Potassium Bicarbonate (Klor-Con/Ef) 50 meq BID GT 12/03/24 10:00 12/03/24 11:02 DC Potassium Bicarbonate (Klor-Con/Ef) 50 meq BID PO 12/03/24 11:15 12/03/24 11:39 Family History: Alzheimer's disease G8 MOTHER, Onset:60 years & older Cardiovascular disease G8 FATHER, Onset:60 years & older Review of Systems All 12 item review of systems reviewed with the patient H&P Exam Vital Signs/I&O Vital Sign Date Time Temp Pulse Resp B/P (MAP) Pulse Ox O2 Delivery O2 Flow Rate FiO2 12/03/24 09:00 97.7 68 17 145/67 (93) 98 97.7 12/03/24 08:00 Room Air* 0 21 Intake and Output 12/02/24 12/03/24 19:00 07:00 Intake Total 1050 ml 800 ml Output Total 1000 ml Balance 50 ml 800 ml Intake Oral 1000 ml 800 ml IV Total 50 ml Output Urine Total 1000 ml # Voids 3 # Bowel Movements 1 2 Physical Exam Patient is awake alert Lungs clear to auscultation bilaterally Cardiac regular rate and rhythm GI soft nontender normal Extremities no clubbing cyanosis or edema Neuro nonfocal Labs/Diagnostic Data Labs/Diagnostic Data Laboratory Tests Test 12/03/24 06:54 12/01/24 22:00 12/01/24 18:14 Range/Units White Blood Count 2.9 L 3.3 L 4.4-10.8 10^3/uL Red Blood Count 3.71 L 3.75 L 4.0-5.20 10^6/uL Hemoglobin 9.2 L 9.5 L 12.2-16.2 g/dL Hematocrit 28.6 L 29.1 L 36.0-46.0 % Mean Corpuscular Volume 77.1 L 77.8 L 80.0-100.0 fL Mean Corpuscular Hemoglobin 24.8 L 25.3 L 28.0-32.0 pg Mean Corpuscular Hemoglobin Concent 32.2 32.5 32.0-36.0 g/dL Red Cell Distribution Width 18.3 H 18.4 H 11.8-14.3 % Platelet Count 311 356 140-450 10^3/uL Mean Platelet Volume 7.8 7.8 6.9-10.8 fL Neutrophils (%) (Auto) 35.4 L 42.4 37.0-80.0 % Lymphocytes (%) (Auto) 43.9 41.8 10.0-50.0 % Monocytes (%) (Auto) 12.4 H 12.1 H 0.0-12.0 % Eosinophils (%) (Auto) 7.4 H 2.5 0.0-7.0 % Basophils (%) (Auto) 0.9 1.2 0.0-2.0 % Neutrophils # (Auto) 1.0 L 1.4 L 1.6-8.6 10 ^3/uL Lymphocytes # (Auto) 1.3 1.4 0.4-5.4 10 ^3/uL Monocytes # (Auto) 0.4 0.4 0-1.3 10 ^3/uL Eosinophils # (Auto) 0.2 0.1 0-0.8 10 ^3/uL Basophils # (Auto) 0 0 0-0.2 10 ^3/uL Nucleated Red Blood Cells 0.1 0.1 % Sodium Level 139 136 136-145 mmol/L Potassium Level 2.9 L 2.7 L 3.5-5.1 mmol/L Chloride Level 105 102 98-107 mmol/L Carbon Dioxide Level 26 26 20-31 mmol/L Anion Gap 8 8 5-15 Blood Urea Nitrogen 6 L 6 L 9-23 mg/dL Creatinine 0.49 L 0.57 0.550-1.02 mg/dL Glomerular Filtration Rate Calc 95 92 >90 mL/min BUN/Creatinine Ratio 12.2 10.5 10.0-20.0 Serum Glucose 89 84 74-106 mg/dL Calcium Level 9.4 10.0 8.7-10.4 mg/dL Magnesium Level 1.5 L 1.6-2.6 mg/dL Urine Color Dark-yellow Yellow Urine Clarity Clear Clear Urine pH 6.0 5.0-9.0 Urine Specific [place] 1.010 1.001-1.035 Urine Protein Negative Negative Urine Ketones Negative Negative Urine Blood Negative Negative /uL Urine Nitrite Negative Negative Urine Bilirubin Negative Negative Urine Urobilinogen Normal Negative mg/dL Urine Leukocyte Esterase Negative Negative /uL Urine RBC 1 0 - 4 /hpf Urine Microscopic WBC 2 0-5 /HPF Urine Squamous Epithelial Cells Few <5 /hpf Urine Bacteria Few H None Seen /hpf Urine Glucose Normal Normal mg/dL Lactic Acid Level 1.2 0.4-2.0 mmol/L Total Bilirubin 0.3 0.2-1.0 mg/dL Aspartate Amino Transferase (AST) 18 13-40 U/L Alanine Aminotransferase (ALT) 16 7-40 U/L Alkaline Phosphatase 58 46-116 U/L Troponin I High Sensitivity 6 </=34 ng/L Total Protein 6.6 5.7-8.2 g/dL Albumin 4.3 3.2-4.8 g/dL Assessment Hypokalemia due to total body potassium depletion Normal kidney function Pelvic pain Diarrhea Microcytic anemia History of recurrent urinary infection, symptoms Recommendations Kidney function is within normal limits Urinalysis is bland does not suggest infection KCL replacement Check magnesium and supplement as needed Check Kidney and bladder ultrasound Check ferritin & iron studies Check stool for occult blood We will continue to follow Patient seen and examined by myself. I discussed my plan of care with the patient and primary nurse at the bedside I would like to thank Dr. Wills for the consult, will follow up Plan discussed with: Patient RONEN ROSS MD Dec 03, 2024 10:34
--- NOTE | 2024-12-03 11:08 | DVH ---
CT CT AB PEL WO CON-NO ORAL OR IV INDICATION: Lt Flank pain : 79 old Female Lt Flank pain EXAM DATE: 12/03/2024 10:26 AM COMPARISON: None RADIATION DOSE: CTDIvol: 7.06 mGy, DLP: 337.53 mGy*cm PROCEDURE: Helical CT images were obtained of the abdomen and pelvis without IV contrast Sagittal and coronal reconstructions are provided. ORAL CONTRAST: None. ADDITIONAL IMAGES / REFORMATS: None All C T scans at this medical facility are performed using dose modulation techniques as appropriate to a p erformed exam including the following: Automated exposure control was utilized; adjustment of the MA and/or KV according to patient size; and use of iterative reconstruction technique. FINDINGS: LUNG BASE: Normal. LIVER: Multiple hepatic cystic lesions measuring up to 3.4 cm are most likely cysts. GALLBLADDER AND BILIARY TREE: No calcified gallstones. Normal caliber wall. No intra- or extrahepatic biliary ductal dilation. PANCREAS: Normal. SPLEEN: Normal. BOWEL: No bowel dilation seen.. Prominent size of the appendix within upper limits of normal. ADRENALS: Normal. KIDNEYS AND URETER: Punctate nonobstructive left kidney stone. BLADDER: Normal. REPRODUCTIVE ORGANS: Not seen. LYMPH NODES:No lymphadenopathy. PERITONEUM: No ascites or free air. No other fluid collection. VESSELS: Scattered atherosclerotic calcifications are noted. RETROPERITONEUM: Normal. ABDOMINAL WALL: Normal. BONES: Scattered osseous degenerative changes are noted. Bilateral hip arthroplasty appears intact. IMPRESSION: No acute intraabdominal abnormality. Punctate nonobstructive left kidney stone. Prominent size of the appendix within upper limits of normal. Multiple hepatic cystic lesions measuring up to 3.4 cm are most likely cysts.
[2024-12-03] MEDS: OXYCODONE W/ ACETAMINOPHEN 5/325MG TABLET PO SCH (11:38)
[2024-12-03] MEDS: POTASSIUM EFFERVESENT TAB 25 MEQ PO SCH (11:39)
--- NOTE | 2024-12-03 12:28 | DVH ---
EXAM: US Retroperitoneal Limited, Renal CLINICAL INDICATION: uti TECHNIQUE: Real-time limited ultrasound of the retroperitoneum with image documentation. COMPARISON: None FINDINGS: RIGHT KIDNEY: Right kidney measures up to 8.7 cm. No stones. No hydronephrosis. LEFT KIDNEY: Left kidney measures up to 9.5 cm. No stones. No hydronephrosis. BLADDER: Normal-appearing urinary bladder. Prevoid 130 cc. OTHER FINDINGS: . IMPRESSION: No acute findings in the retroperitoneum.
[2024-12-03] MEDS: GABAPENTIN 300 MG CAP PO SCH (13:28)
[2024-12-03 22:21] LABS: Urine Bacteria None Seen /hpf (None Seen)
[2024-12-03 22:34] LABS: Urine Blood Negative /uL (Negative); Urine Clarity Clear (Clear); Urine Color Light-Yellow (Yellow); Urine Protein, UAD Negative (Negative); Urine Specific Gravity 1.005 (1.001-1.035); Urine Squamous Epithelial Cell FEW /hpf (<5); Urine Urobilinogen Normal (Negative); Urine WBC < 1 /HPF (0-5); Urine pH 6.5 (5.0-9.0)
[2024-12-04 01:00] VITALS: BP 123/65; PULSE 75; RESP 18; TEMP 97.9; O2SAT 95
[2024-12-04 05:00] VITALS: BP 116/67; PULSE 60; RESP 17; TEMP 97.5; O2SAT 92
[2024-12-04 09:00] VITALS: BP 104/61; PULSE 87; RESP 17; TEMP 97.5; O2SAT 94
--- NOTE | 2024-12-04 11:02 | DVHPN2 ---
Reviewed: Care Plan, H&P, Labs, Medications, Previous Orders, Radiology Changes from previous H/P or p: No Changes Objective Vitals Vital Signs Date Time Temp Pulse Resp B/P (MAP) Pulse Ox O2 Delivery O2 Flow Rate FiO2 12/04/24 08:05 Room Air* 0 21 12/04/24 05:00 97.5 60 17 116/67 (83) 92 97.5 Intake/Output Intake and Output 12/04/24 06:59 Intake Total 2150 ml Output Total 900 ml Balance 1250 ml Intake Oral 2100 ml IV Total 50 ml Output Urine Total 900 ml # Voids 4 # Bowel Movements 3 Medications Current Medications Medications Dose Ordered Sig/Michelle Route Start Time Stop Time Status Last Admin Dose Admin Ceftriaxone Sodium 50 ml @ 100 mls/hr DAILY@09 IV 12/02/24 09:00 12/04/24 10:29 100 MLS/HR Apixaban 2.5 mg BID PO 12/02/24 10:00 12/04/24 10:28 2.5 MG Duloxetine HCl 60 mg DAILY PO 12/02/24 10:00 12/04/24 10:28 60 MG Ondansetron HCl 4 mg Q4HP PRN IV 12/01/24 23:00 Acetaminophen 650 mg Q6HP PRN PO 12/01/24 23:00 Alprazolam 1 mg Q8HPRN PRN PO 12/02/24 12:30 12/03/24 21:29 1 MG Loperamide HCl 2 mg Q4HR PRN PO 12/03/24 10:00 Oxycodone/ Acetaminophen 1 tab Q6HP PO 12/03/24 10:00 12/04/24 05:28 1 TAB Gabapentin 300 mg TID PO 12/03/24 14:00 12/04/24 05:28 300 MG Potassium Bicarbonate 50 meq BID PO 12/03/24 11:15 12/04/24 10:29 50 MEQ Laboratory Results Laboratory Tests 12/03/24 06:54 Urinalysis Test 12/03/24 21:30 Urine Color Light-yellow (Yellow) Urine Clarity Clear (Clear) Urine pH 6.5 (5.0-9.0) Urine Specific [place] 1.005 (1.001-1.035) Urine Protein Negative (Negative) Urine Ketones Negative (Negative) Urine Blood Negative /uL (Negative) Urine Nitrite Negative (Negative) Urine Bilirubin Negative (Negative) Urine Urobilinogen Normal mg/dL (Negative) Urine Leukocyte Esterase Negative /uL (Negative) Urine RBC 3 /hpf (0 - 4) Urine Microscopic WBC < 1 /HPF (0-5) Urine Squamous Epithelial Cells Few /hpf (<5) Urine Bacteria None seen /hpf (None Seen) Urine Glucose Normal mg/dL (Normal) Microbiology Microbiology Date/Time Source Procedure Growth Status 12/02/24 12:53 Blood Blood Culture - Preliminary NO GROWTH AFTER 24 HOURS OF INCUBATION. Resulted 12/01/24 22:00 Voided Urine Urine Culture - Preliminary Resulted Labs and/or images reviewed: Labs reviewed by me, Image(s) reviewed by me Assessment/Plan Assessment/Plan Sepsis secondary to acute urinary tract infection Acute urinary tract infection: Blood cultures negative, urine cultures negative preliminary, continue Rocephin History of lupus Acute hypokalemia potassium 2.7: Replace potassium consult for Dr. 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 with fracture right orbit right shoulder and left knee History of dysphagia with G-tube placement and subsequent removal Anxiety: Xanax Patient was recently in [facility] C diff colitis: Imodium stool for C diff pending PCP: DR Tolentino Patient's granddaughter Kristen who has POA [phone] at bedside Patient on [facility] Critical care time 50 minutes including discussion with the family for 20 minutes Patient is full code Advanced care planning time 20 minutes Plan discussed with: Patient My Orders Orders - KEVAN MENJIVAR MD Procedure Category Date Status Time Potassium Effervesent PHA 12/03/24 In Process Tab (Klor-Con/Ef) 11:15 Clostridium Difficile MARYJANE 12/03/24 In Process Toxin 13:43 Date of Service: Dec 04, 2024 Billing Provider: KEVAN MENJIVAR MD Common Visit Codes: [id number] INP/OBS CARE(HIGH) KEVAN MENJIVAR MD Dec 04, 2024 11:02
[2024-12-04 13:33] VITALS: BP 123/75; PULSE 80; RESP 17; TEMP 98; O2SAT 96
--- NOTE | 2024-12-04 13:47 | DVHPN2 ---
Progress Note Date Seen: Dec 04, 2024 Medical Necessity Reason Pt with a Central, PICC or Fol: No Subjective Patient reports: Feels better Objective vital signs Vital Sign Date Time Temp Pulse Resp B/P (MAP) Pulse Ox O2 Delivery O2 Flow Rate FiO2 12/04/24 13:33 98.0 80 17 123/75 (91) 96 98.0 12/04/24 08:05 Room Air* 0 21 Total Intake and Output 12/03/24 12/03/24 12/04/24 15:00 23:00 07:00 Intake Total 50 ml 1400 ml 700 ml Output Total 900 ml Balance 50 ml 1400 ml -200 ml medications Current Medications Medications Dose Ordered Sig/Michelle Route Start Time Stop Time Status Last Admin Dose Admin Ceftriaxone Sodium 50 ml @ 100 mls/hr DAILY@09 IV 12/02/24 09:00 12/04/24 10:29 100 MLS/HR Apixaban 2.5 mg BID PO 12/02/24 10:00 12/04/24 10:28 2.5 MG Duloxetine HCl 60 mg DAILY PO 12/02/24 10:00 12/04/24 10:28 60 MG Ondansetron HCl 4 mg Q4HP PRN IV 12/01/24 23:00 Acetaminophen 650 mg Q6HP PRN PO 12/01/24 23:00 Loperamide HCl 2 mg Q4HR PRN PO 12/03/24 10:00 Oxycodone/ Acetaminophen 1 tab Q6HP PO 12/03/24 10:00 12/04/24 12:46 1 TAB Gabapentin 300 mg TID PO 12/03/24 14:00 12/04/24 05:28 300 MG Potassium Bicarbonate 50 meq BID PO 12/03/24 11:15 12/04/24 10:29 50 MEQ Alprazolam 0.5 mg Q8HPRN PRN PO 12/04/24 12:00 Examination: GENERAL:Normal laboratory and microbiology Laboratory Tests 12/03/24 06:54 Test 12/03/24 06:54 Range/Units Serum Glucose 89 74-106 mg/dL Microbiology Date/Time Source Procedure Growth Status 12/02/24 12:53 Blood Blood Culture - Preliminary NO GROWTH AFTER 48 HOURS OF INCUBATION. Resulted 12/01/24 22:00 Voided Urine Urine Culture - Final Complete Problem List/Assessment/Plan Problem List/Assessment/Plan Hypokalemia due to total body potassium depletion Normal kidney function Pelvic pain Diarrhea Microcytic anemia History of recurrent urinary infection, symptoms Recommendations Kidney function is within normal limits Urinalysis is bland does not suggest infection KCL replacement Kidney and bladder ultrasound unremarkable K loss is likely gastric send urine K tomorrow if still low Plan discussed with: Patient ALEJANDRA MATAMOROS MD Dec 04, 2024 13:47
[2024-12-04] MEDS: MAGNESIUM SULFATE 1GM/100ML 100 ML IV SCH (14:00)
[2024-12-04] MEDS: ALPRAZolam 0.5 MG TAB PO PRN (14:00)
[2024-12-04] MEDS: MAGNESIUM SULFATE 1GM/100ML 100 ML IV ONE (16:37)
[2024-12-04 17:00] VITALS: BP 137/68; PULSE 61; RESP 17; TEMP 98.1; O2SAT 96
[2024-12-04 21:00] VITALS: BP 114/49; PULSE 66; RESP 17; TEMP 98.5; O2SAT 94
[2024-12-05 05:00] VITALS: BP 124/62; PULSE 67; RESP 17; TEMP 98.4; O2SAT 92
[2024-12-05 06:59] LABS: Alanine Aminotransferase 11 U/L (7-40); Alkaline Phosphatase 60 U/L (46-116); Anion Gap 7 (5-15); Calcium 9.9 mg/dL (8.7-10.4); Carbon Dioxide 29 mmol/L (20-31); Chloride 101 mmol/L (98-107); Glucose 90 mg/dL (74-106); Sodium 137 mmol/L (136-145); Total Protein 6.5 g/dL (5.7-8.2)
[2024-12-05 07:01] LABS: Albumin 4.1 g/dL (3.2-4.8); Aspartate Aminotransferase 14 U/L (13-40); Bilirubin, Total 0.2 mg/dL (0.2-1.0); Blood Urea Nitrogen 7 mg/dL (9-23)
[2024-12-05 08:43] VITALS: BP 138/64; PULSE 70; RESP 16; TEMP 97.7; O2SAT 95
--- NOTE | 2024-12-05 10:38 | DVHPN2 ---
Reviewed: Care Plan, H&P, Labs, Medications, Previous Orders, Radiology Changes from previous H/P or p: No Changes Objective Vitals Vital Signs Date Time Temp Pulse Resp B/P (MAP) Pulse Ox O2 Delivery O2 Flow Rate FiO2 12/05/24 08:43 97.7 70 16 138/64 (88) 95 97.7 12/04/24 20:00 Room Air* 0 21 Intake/Output Intake and Output 12/05/24 07:00 Intake Total 1400 ml Balance 1400 ml Intake Oral 1150 ml IV Total 250 ml # Voids 11 # Bowel Movements 6 Medications Current Medications Medications Dose Ordered Sig/Michelle Route Start Time Stop Time Status Last Admin Dose Admin Ceftriaxone Sodium 50 ml @ 100 mls/hr DAILY@09 IV 12/02/24 09:00 12/05/24 10:04 100 MLS/HR Apixaban 2.5 mg BID PO 12/02/24 10:00 12/05/24 10:04 2.5 MG Duloxetine HCl 60 mg DAILY PO 12/02/24 10:00 12/05/24 10:04 60 MG Ondansetron HCl 4 mg Q4HP PRN IV 12/01/24 23:00 Acetaminophen 650 mg Q6HP PRN PO 12/01/24 23:00 Loperamide HCl 2 mg Q4HR PRN PO 12/03/24 10:00 Oxycodone/ Acetaminophen 1 tab Q6HP PO 12/03/24 10:00 12/05/24 05:33 1 TAB Gabapentin 300 mg TID PO 12/03/24 14:00 12/05/24 05:32 300 MG Potassium Bicarbonate 50 meq BID PO 12/03/24 11:15 12/04/24 21:12 50 MEQ Alprazolam 0.5 mg Q8HPRN PRN PO 12/04/24 12:00 12/05/24 00:33 0.5 MG Laboratory Results Laboratory Tests 12/03/24 06:54 12/05/24 05:53 Chemistry Test 12/04/24 11:30 12/05/24 05:53 Magnesium Level 1.5 mg/dL (1.6-2.6) L Albumin 4.1 g/dL (3.2-4.8) Calcium Level 9.9 mg/dL (8.7-10.4) Total Protein 6.5 g/dL (5.7-8.2) LFT Test 12/05/24 05:53 Alanine Aminotransferase (ALT) 11 U/L (7-40) Alkaline Phosphatase 60 U/L (46-116) Aspartate Amino Transferase (AST) 14 U/L (13-40) Total Bilirubin 0.2 mg/dL (0.2-1.0) Urinalysis Test 12/03/24 21:30 Urine Color Light-yellow (Yellow) Urine Clarity Clear (Clear) Urine pH 6.5 (5.0-9.0) Urine Specific [place] 1.005 (1.001-1.035) Urine Protein Negative (Negative) Urine Ketones Negative (Negative) Urine Blood Negative /uL (Negative) Urine Nitrite Negative (Negative) Urine Bilirubin Negative (Negative) Urine Urobilinogen Normal mg/dL (Negative) Urine Leukocyte Esterase Negative /uL (Negative) Urine RBC 3 /hpf (0 - 4) Urine Microscopic WBC < 1 /HPF (0-5) Urine Squamous Epithelial Cells Few /hpf (<5) Urine Bacteria None seen /hpf (None Seen) Urine Glucose Normal mg/dL (Normal) Microbiology Microbiology Date/Time Source Procedure Growth Status 12/03/24 14:14 Stool Clostridium difficile Toxin Assay - Final Complete 12/02/24 12:53 Blood Blood Culture - Preliminary NO GROWTH AFTER 48 HOURS OF INCUBATION. Resulted 12/01/24 22:00 Voided Urine Urine Culture - Final Complete Labs and/or images reviewed: Labs reviewed by me, Image(s) reviewed by me Assessment/Plan Assessment/Plan Sepsis secondary to acute urinary tract infection Mild Acute urinary tract infection: Blood cultures negative, urine cultures negative , continue Rocephin History of lupus Acute hypokalemia potassium 2.7: Replace potassium consult for Dr. 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 Chronic pain syndrome: Percocet History of fall August 2024 seen in [facility] transfer to [facility] with fracture right orbit right shoulder and left knee History of dysphagia with G-tube placement and subsequent removal Anxiety: Xanax Patient was recently in [facility] C diff colitis: Imodium, stool for C diff, indeterminate result done twice, will repeat one more time PCP: DR Tolentino Patient's granddaughter Kristen who has POA [phone] at bedside Patient on [facility] Critical care time 50 minutes including discussion with the family for 20 minutes Patient is full code Advanced care planning time 20 minutes Plan discussed with: Patient My Orders Orders - KEVAN MENJIVAR MD Procedure Category Date Status Time Alprazolam Tablet PHA 12/04/24 In Process (Xanax Tablet) 12:00 Complete Blood Count LAB 12/05/24 Verified 10:34 Comprehensive LAB 12/05/24 Verified Metabolic Panel 10:34 Magnesium LAB 12/05/24 Verified 10:34 Date of Service: Dec 05, 2024 Billing Provider: KEVAN MENJIVAR MD Common Visit Codes: [id number] INP/OBS CARE(HIGH) KEVAN MENJIVAR MD Dec 05, 2024 10:38
[2024-12-05 10:46] LABS: Basophils # (auto) 0 10 ^3/uL (0-0.2); Eosinophils # (auto) 0.2 10 ^3/uL (0-0.8); Hematocrit 31.1 % (36.0-46.0); Hemoglobin 9.7 g/dL (12.2-16.2); Lymphocytes # (auto) 1.7 10 ^3/uL (0.4-5.4); Monocytes # (auto) 0.4 10 ^3/uL (0-1.3); Red Blood Cells 3.95 10^6/uL (4.0-5.20); Red Cell Distribution Width 18.4 % (11.8-14.3); White Blood Cell 3.5 10^3/uL (4.4-10.8)
[2024-12-05 10:50] LABS: Basophils % (auto) 1.4 % (0.0-2.0); Eosinophils % (auto) 6.7 % (0.0-7.0); Lymphocytes % (auto) 47.2 % (10.0-50.0); Mean Corpuscular Hemoglobin 24.7 pg (28.0-32.0); Mean Corpuscular Hgb Conc. 31.4 g/dL (32.0-36.0); Mean Corpuscular Volume 78.6 fL (80.0-100.0); Monocytes % (auto) 11.3 % (0.0-12.0); Neutrophils # (auto) 1.2 10 ^3/uL (1.6-8.6); Neutrophils % (auto) 33.4 % (37.0-80.0); Nucleated Red Blood Cells % 0.5 %; Platelet Count (auto) 343 10^3/uL (140-450)
--- NOTE | 2024-12-05 12:00 | DVHPN2 ---
Progress Note Date Seen: Dec 05, 2024 Medical Necessity Reason Pt with a Central, PICC or Fol: No Objective vital signs Vital Sign Date Time Temp Pulse Resp B/P (MAP) Pulse Ox O2 Delivery O2 Flow Rate FiO2 12/05/24 08:43 97.7 70 16 138/64 (88) 95 97.7 12/05/24 08:10 Room Air* 0 21 Total Intake and Output 12/04/24 12/04/24 12/05/24 15:00 23:00 07:00 Intake Total 150 ml 900 ml 350 ml Balance 150 ml 900 ml 350 ml medications Current Medications Medications Dose Ordered Sig/Michelle Route Start Time Stop Time Status Last Admin Dose Admin Ceftriaxone Sodium 50 ml @ 100 mls/hr DAILY@09 IV 12/02/24 09:00 12/05/24 10:04 100 MLS/HR Apixaban 2.5 mg BID PO 12/02/24 10:00 12/05/24 10:04 2.5 MG Duloxetine HCl 60 mg DAILY PO 12/02/24 10:00 12/05/24 10:04 60 MG Ondansetron HCl 4 mg Q4HP PRN IV 12/01/24 23:00 Acetaminophen 650 mg Q6HP PRN PO 12/01/24 23:00 Loperamide HCl 2 mg Q4HR PRN PO 12/03/24 10:00 Oxycodone/ Acetaminophen 1 tab Q6HP PO 12/03/24 10:00 12/05/24 05:33 1 TAB Gabapentin 300 mg TID PO 12/03/24 14:00 12/05/24 05:32 300 MG Potassium Bicarbonate 50 meq BID PO 12/03/24 11:15 12/04/24 21:12 50 MEQ Alprazolam 0.5 mg Q8HPRN PRN PO 12/04/24 12:00 12/05/24 00:33 0.5 MG Examination: GENERAL:Normal, CVS:Normal laboratory and microbiology Laboratory Tests 12/05/24 05:53 Test 12/05/24 05:53 Range/Units Serum Glucose 90 74-106 mg/dL Microbiology Date/Time Source Procedure Growth Status 12/03/24 14:14 Stool Clostridium difficile Toxin Assay - Final Complete 12/02/24 12:53 Blood Blood Culture - Preliminary NO GROWTH AFTER 48 HOURS OF INCUBATION. Resulted 12/01/24 22:00 Voided Urine Urine Culture - Final Complete Problem List/Assessment/Plan Problem List/Assessment/Plan Hypokalemia due to total body potassium depletion Normal kidney function Pelvic pain Diarrhea Microcytic anemia History of recurrent urinary infection, symptoms Recommendations Kidney function is within normal limits Urinalysis is bland does not suggest infection KCL replacement hold today b/c k 5.0 . repeat k level Kidney and bladder ultrasound unremarkable Plan discussed with: Patient Dietary Evaluation Review Comments: 1. Continue Regular diet as tolerated 2. Encourage continued good oral intake of meals 3. Monitor I&O's, GI sx 4. Rule-out infectious causes for diarrhea, imodium if negative Expected Outcomes/Goals: Improved lab values, normal BM's. ALEJANDRA MATAMOROS MD Dec 05, 2024 12:00
[2024-12-05 12:33] VITALS: BP 115/64; PULSE 60; RESP 16; TEMP 98.1; O2SAT 90
[2024-12-05 16:53] VITALS: BP 127/67; PULSE 62; RESP 15; TEMP 97.9; O2SAT 94
[2024-12-05 20:00] VITALS: PULSE 64; RESP 16; O2SAT 94
[2024-12-05 21:00] VITALS: BP 107/62; PULSE 64; RESP 16; TEMP 97.8; O2SAT 94
[2024-12-06] VITALS (8 sets, daily range): BP systolic 119–140; BP diastolic 52–79; PULSE 59–82; RESP 15–18; TEMP 97.6–98.6; O2SAT 91–95
[2024-12-06 06:47] LABS: Anion Gap 6 (5-15); Carbon Dioxide 30 mmol/L (20-31); Chloride 102 mmol/L (98-107); Potassium 4.4 mmol/L (3.5-5.1); Sodium 138 mmol/L (136-145)
[2024-12-06 06:49] LABS: Calcium 9.9 mg/dL (8.7-10.4)
[2024-12-06 06:53] LABS: BUN/Creatinine Ratio 17.9 (10.0-20.0); Blood Urea Nitrogen 10 mg/dL (9-23); Glucose 85 mg/dL (74-106)
--- NOTE | 2024-12-06 10:51 | DVHPN2 ---
Reviewed: Care Plan, H&P, Labs, Medications, Previous Orders, Radiology Changes from previous H/P or p: No Changes Objective Vitals Vital Signs Date Time Temp Pulse Resp B/P (MAP) Pulse Ox O2 Delivery O2 Flow Rate FiO2 12/06/24 09:00 98.6 74 18 126/77 (93) 93 98.6 12/05/24 20:00 Room Air* 0 21 Intake/Output Intake and Output 12/06/24 07:00 Intake Total 2260 ml Balance 2260 ml Intake Oral 2210 ml IV Total 50 ml # Voids 11 # Bowel Movements 4 Medications Current Medications Medications Dose Ordered Sig/Michelle Route Start Time Stop Time Status Last Admin Dose Admin Ceftriaxone Sodium 50 ml @ 100 mls/hr DAILY@09 IV 12/02/24 09:00 12/06/24 09:55 100 MLS/HR Apixaban 2.5 mg BID PO 12/02/24 10:00 12/06/24 09:55 2.5 MG Duloxetine HCl 60 mg DAILY PO 12/02/24 10:00 12/06/24 09:55 60 MG Ondansetron HCl 4 mg Q4HP PRN IV 12/01/24 23:00 Acetaminophen 650 mg Q6HP PRN PO 12/01/24 23:00 Loperamide HCl 2 mg Q4HR PRN PO 12/03/24 10:00 Oxycodone/ Acetaminophen 1 tab Q6HP PO 12/03/24 10:00 12/06/24 05:53 1 TAB Gabapentin 300 mg TID PO 12/03/24 14:00 12/06/24 05:53 300 MG Alprazolam 0.5 mg Q8HPRN PRN PO 12/04/24 12:00 12/06/24 00:00 0.5 MG Laboratory Results Laboratory Tests 12/05/24 05:53 12/06/24 06:03 Chemistry Test 12/06/24 06:03 Calcium Level 9.9 mg/dL (8.7-10.4) Urinalysis Test 12/03/24 21:30 Urine Color Light-yellow (Yellow) Urine Clarity Clear (Clear) Urine pH 6.5 (5.0-9.0) Urine Specific [place] 1.005 (1.001-1.035) Urine Protein Negative (Negative) Urine Ketones Negative (Negative) Urine Blood Negative /uL (Negative) Urine Nitrite Negative (Negative) Urine Bilirubin Negative (Negative) Urine Urobilinogen Normal mg/dL (Negative) Urine Leukocyte Esterase Negative /uL (Negative) Urine RBC 3 /hpf (0 - 4) Urine Microscopic WBC < 1 /HPF (0-5) Urine Squamous Epithelial Cells Few /hpf (<5) Urine Bacteria None seen /hpf (None Seen) Urine Glucose Normal mg/dL (Normal) Microbiology Microbiology Date/Time Source Procedure Growth Status 12/03/24 14:14 Stool Clostridium difficile Toxin Assay - Final Complete 12/02/24 12:53 Blood Blood Culture - Preliminary NO GROWTH AFTER 72 HOURS OF INCUBATION. Resulted 12/01/24 22:00 Voided Urine Urine Culture - Final Complete Labs and/or images reviewed: Labs reviewed by me, Image(s) reviewed by me Assessment/Plan Assessment/Plan Sepsis secondary to acute urinary tract infection Mild Acute urinary tract infection: Blood cultures negative, urine cultures negative , continue Rocephin History of lupus Acute hypokalemia potassium 2.7: Replace potassium consult for Dr. 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 Chronic pain syndrome: Percocet History of fall August 2024 seen in [facility] transfer to [facility] with fracture right orbit right shoulder and left knee History of dysphagia with G-tube placement and subsequent removal Anxiety: Xanax Patient was recently in [place] re[facility] C diff colitis: Imodium, stool for C diff, indeterminate result done twice, repeat C diff pending PCP: DR Tolentino Patient's granddaughter Kristen who has POA [phone] at bedside Patient on [facility] Critical care time 50 minutes including discussion with the family for 20 minutes Patient is full code Advanced care planning time 20 minutes Repeat UA and urine cultures ordered per patient's request Plan discussed with: Patient My Orders Orders - KEVAN MENJIVAR MD Procedure Category Date Status Time Clostridium Difficile MARYJANE 12/05/24 In Process Toxin 10:49 Date of Service: Dec 06, 2024 Billing Provider: KEVAN MENJIVAR MD Common Visit Codes: [id number] INP/OBS CARE(HIGH) KEVAN MENJIVAR MD Dec 06, 2024 10:51
--- NOTE | 2024-12-06 13:52 | DVHPN2 ---
Progress Note Date Seen: Dec 06, 2024 Medical Necessity Reason Pt with a Central, PICC or Fol: No Objective vital signs Vital Sign Date Time Temp Pulse Resp B/P (MAP) Pulse Ox O2 Delivery O2 Flow Rate FiO2 12/06/24 13:00 98.2 82 18 140/79 (99) 94 98.2 12/05/24 20:00 Room Air* 0 21 Total Intake and Output 12/05/24 12/05/24 12/06/24 15:00 23:00 07:00 Intake Total 50 ml 1050 ml 1160 ml Balance 50 ml 1050 ml 1160 ml medications Current Medications Medications Dose Ordered Sig/Michelle Route Start Time Stop Time Status Last Admin Dose Admin Ceftriaxone Sodium 50 ml @ 100 mls/hr DAILY@09 IV 12/02/24 09:00 12/06/24 09:55 100 MLS/HR Apixaban 2.5 mg BID PO 12/02/24 10:00 12/06/24 09:55 2.5 MG Duloxetine HCl 60 mg DAILY PO 12/02/24 10:00 12/06/24 09:55 60 MG Ondansetron HCl 4 mg Q4HP PRN IV 12/01/24 23:00 Acetaminophen 650 mg Q6HP PRN PO 12/01/24 23:00 Loperamide HCl 2 mg Q4HR PRN PO 12/03/24 10:00 Oxycodone/ Acetaminophen 1 tab Q6HP PO 12/03/24 10:00 12/06/24 13:15 1 TAB Gabapentin 300 mg TID PO 12/03/24 14:00 12/06/24 05:53 300 MG Alprazolam 0.5 mg Q8HPRN PRN PO 12/04/24 12:00 12/06/24 13:20 0.5 MG Examination: GENERAL:Normal, CVS:Normal laboratory and microbiology Laboratory Tests 12/06/24 06:03 12/05/24 05:53 Test 12/06/24 06:03 Range/Units Serum Glucose 85 74-106 mg/dL Microbiology Date/Time Source Procedure Growth Status 12/03/24 14:14 Stool Clostridium difficile Toxin Assay - Final Complete 12/02/24 12:53 Blood Blood Culture - Preliminary NO GROWTH AFTER 72 HOURS OF INCUBATION. Resulted 12/01/24 22:00 Voided Urine Urine Culture - Final Complete Problem List/Assessment/Plan Problem List/Assessment/Plan Hypokalemia due to total body potassium depletion Normal kidney function Pelvic pain Diarrhea Microcytic anemia History of recurrent urinary infection, symptoms Recommendations Kidney function is within normal limits Urinalysis is bland does not suggest infection KCL replacement hold today b/c k 5.0 . repeat k level was high potassium supplement stopped Kidney and bladder ultrasound unremarkable stable from renal standpoint Plan discussed with: Patient Dietary Evaluation Review Comments: 1. Continue Regular diet as tolerated 2. Encourage continued good oral intake of meals 3. Monitor I&O's, GI sx 4. Rule-out infectious causes for diarrhea, imodium if negative Expected Outcomes/Goals: Improved lab values, normal BM's. ALEJANDRA MATAMOROS MD Dec 06, 2024 13:52
[2024-12-06 14:44] LABS: Urine Bacteria None Seen /hpf (None Seen)
[2024-12-06 14:56] LABS: Urine Blood Negative /uL (Negative); Urine Clarity Clear (Clear); Urine Color Light-Yellow (Yellow); Urine Protein, UAD Negative (Negative); Urine Specific Gravity 1.015 (1.001-1.035); Urine Squamous Epithelial Cell FEW /hpf (<5); Urine Urobilinogen Normal (Negative); Urine WBC 1 /HPF (0-5)
[2024-12-07 05:00] VITALS: BP 123/70; PULSE 58; RESP 15; TEMP 98.1; O2SAT 93
[2024-12-07 08:52] VITALS: BP 135/81; PULSE 65; RESP 17; TEMP 98.1; O2SAT 93
--- NOTE | 2024-12-07 10:15 | DVHPN2 ---
Reviewed: Care Plan, H&P, Labs, Medications, Previous Orders, Radiology Changes from previous H/P or p: No Changes Objective Vitals Vital Signs Date Time Temp Pulse Resp B/P (MAP) Pulse Ox O2 Delivery O2 Flow Rate FiO2 12/07/24 08:52 98.1 65 17 135/81 (99) 93 98.1 12/06/24 20:00 Room Air* 0 21 Intake/Output Intake and Output 12/07/24 07:00 Intake Total 1350 ml Output Total 1 ml Balance 1349 ml Intake Oral 1300 ml IV Total 50 ml Stool Total 1 ml # Voids 14 # Bowel Movements 1 Medications Current Medications Medications Dose Ordered Sig/Michelle Route Start Time Stop Time Status Last Admin Dose Admin Ceftriaxone Sodium 50 ml @ 100 mls/hr DAILY@09 IV 12/02/24 09:00 12/07/24 09:04 100 MLS/HR Apixaban 2.5 mg BID PO 12/02/24 10:00 12/07/24 09:05 2.5 MG Duloxetine HCl 60 mg DAILY PO 12/02/24 10:00 12/07/24 09:05 60 MG Ondansetron HCl 4 mg Q4HP PRN IV 12/01/24 23:00 Acetaminophen 650 mg Q6HP PRN PO 12/01/24 23:00 Loperamide HCl 2 mg Q4HR PRN PO 12/03/24 10:00 Oxycodone/ Acetaminophen 1 tab Q6HP PO 12/03/24 10:00 12/07/24 05:35 1 TAB Gabapentin 300 mg TID PO 12/03/24 14:00 12/07/24 05:35 300 MG Alprazolam 0.5 mg Q8HPRN PRN PO 12/04/24 12:00 12/06/24 21:52 0.5 MG Laboratory Results Laboratory Tests 12/05/24 05:53 12/06/24 06:03 Urinalysis Test 12/06/24 14:10 Urine Color Light-yellow (Yellow) Urine Clarity Clear (Clear) Urine pH 7.0 (5.0-9.0) Urine Specific [place] 1.015 (1.001-1.035) Urine Protein Negative (Negative) Urine Ketones Negative (Negative) Urine Blood Negative /uL (Negative) Urine Nitrite Negative (Negative) Urine Bilirubin Negative (Negative) Urine Urobilinogen Normal mg/dL (Negative) Urine Leukocyte Esterase Negative /uL (Negative) Urine RBC 2 /hpf (0 - 4) Urine Microscopic WBC 1 /HPF (0-5) Urine Squamous Epithelial Cells Few /hpf (<5) Urine Bacteria None seen /hpf (None Seen) Urine Glucose Normal mg/dL (Normal) Microbiology Microbiology Date/Time Source Procedure Growth Status 12/05/24 18:44 Stool Clostridium difficile Toxin Assay - Final Complete 12/02/24 12:53 Blood Blood Culture - Preliminary NO GROWTH AFTER 72 HOURS OF INCUBATION. Resulted 12/01/24 22:00 Voided Urine Urine Culture - Final Complete Labs and/or images reviewed: Labs reviewed by me, Image(s) reviewed by me Assessment/Plan Assessment/Plan Sepsis secondary to acute urinary tract infection Mild Acute urinary tract infection: Blood cultures negative, urine cultures negative , continue Rocephin History of lupus Acute hypokalemia potassium 2.7: Replace potassium consult for Dr. 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 Chronic pain syndrome: Percocet History of fall August 2024 seen in [facility] transfer to [facility] with fracture right orbit right shoulder and left knee History of dysphagia with G-tube placement and subsequent removal Anxiety: Xanax Patient was recently in [facility] Acute diarrhea resolving, C diff neg PCP: DR Tolentino Patient's granddaughter Kristen who has POA [phone] at bedside Patient on [facility] Critical care time 50 minutes including discussion with the family for 20 minutes Patient is full code Advanced care planning time 20 minutes Plan discussed with: Patient My Orders Orders - KEVAN MENJIVAR MD Procedure Category Date Status Time Urine Bacterial MARYJANE 12/06/24 In Process Culture 10:51 Date of Service: Dec 07, 2024 Billing Provider: KEVAN MENJIVAR MD Common Visit Codes: [id number] INP/OBS CARE(HIGH) KEVAN MENJIVAR MD Dec 07, 2024 10:15
[2024-12-07] MEDS ORDERED: ALPR1TAB2 PO (10:24)
[2024-12-07] MEDS ORDERED: LOPE2CAP16 PO (10:24)
[2024-12-07] MEDS ORDERED: ZOFR4T PO (10:24)
--- NOTE | 2024-12-07 10:28 | DVHDS2 ---
Discharge Summary Date of Admission Dec 01, 2024 at 22:56 Date of Discharge: Dec 07, 2024 Admitting Diagnosis Generalized weakness Wounds: None Labs/Diagnostic Data: Laboratory Results Test 12/06/24 14:10 12/06/24 06:03 12/05/24 05:53 12/01/24 18:14 Urine Color Light-yellow (Yellow) Urine Clarity Clear (Clear) Urine pH 7.0 (5.0-9.0) Urine Specific [place] 1.015 (1.001-1.035) Urine Protein Negative (Negative) Urine Ketones Negative (Negative) Urine Blood Negative /uL (Negative) Urine Nitrite Negative (Negative) Urine Bilirubin Negative (Negative) Urine Urobilinogen Normal mg/dL (Negative) Urine Leukocyte Esterase Negative /uL (Negative) Urine RBC 2 /hpf (0 - 4) Urine Microscopic WBC 1 /HPF (0-5) Urine Squamous Epithelial Cells Few /hpf (<5) Urine Bacteria None seen /hpf (None Seen) Urine Glucose Normal mg/dL (Normal) Sodium Level 138 mmol/L (136-145) Potassium Level 4.4 mmol/L (3.5-5.1) Chloride Level 102 mmol/L (98-107) Carbon Dioxide Level 30 mmol/L (20-31) Anion Gap 6 (5-15) Blood Urea Nitrogen 10 mg/dL (9-23) Creatinine 0.56 mg/dL (0.550-1.02) Glomerular Filtration Rate Calc 92 mL/min (>90) BUN/Creatinine Ratio 17.9 (10.0-20.0) Serum Glucose 85 mg/dL (74-106) Calcium Level 9.9 mg/dL (8.7-10.4) White Blood Count 3.5 10^3/uL (4.4-10.8) Red Blood Count 3.95 10^6/uL (4.0-5.20) Hemoglobin 9.7 g/dL (12.2-16.2) Hematocrit 31.1 % (36.0-46.0) Mean Corpuscular Volume 78.6 fL (80.0-100.0) Mean Corpuscular Hemoglobin 24.7 pg (28.0-32.0) Mean Corpuscular Hemoglobin Concent 31.4 g/dL (32.0-36.0) Red Cell Distribution Width 18.4 % (11.8-14.3) Platelet Count 343 10^3/uL (140-450) Mean Platelet Volume 8.4 fL (6.9-10.8) Neutrophils (%) (Auto) 33.4 % (37.0-80.0) Lymphocytes (%) (Auto) 47.2 % (10.0-50.0) Monocytes (%) (Auto) 11.3 % (0.0-12.0) Eosinophils (%) (Auto) 6.7 % (0.0-7.0) Basophils (%) (Auto) 1.4 % (0.0-2.0) Neutrophils # (Auto) 1.2 10 ^3/uL (1.6-8.6) Lymphocytes # (Auto) 1.7 10 ^3/uL (0.4-5.4) Monocytes # (Auto) 0.4 10 ^3/uL (0-1.3) Eosinophils # (Auto) 0.2 10 ^3/uL (0-0.8) Basophils # (Auto) 0 10 ^3/uL (0-0.2) Nucleated Red Blood Cells 0.5 % Magnesium Level 2.1 mg/dL (1.6-2.6) Total Bilirubin 0.2 mg/dL (0.2-1.0) Aspartate Amino Transferase (AST) 14 U/L (13-40) Alanine Aminotransferase (ALT) 11 U/L (7-40) Alkaline Phosphatase 60 U/L (46-116) Total Protein 6.5 g/dL (5.7-8.2) Albumin 4.1 g/dL (3.2-4.8) Lactic Acid Level 1.2 mmol/L (0.4-2.0) Troponin I High Sensitivity 6 ng/L (</=34) Other Laboratory Tests 12/06/24 06:03 12/05/24 05:53 Brief Hx & Hospital Course: 83-year-old female with a history of depression chronic pain syndrome history of all August 2024 with a fracture right orbit right shoulder left knee transfer to [place] history of dysphagia with a G-tube placement subsequent removal history of anxiety 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 Patient was treated with a Imodium p.r.n. potassium was low 2.7 which was replaced magnesium was low 1.5 which was replaced. Stool for C diff came negative patient had mild UTI treated with Rocephin. At the time of discharge patient has mild diarrhea no nausea or vomiting able to ambulate vital signs are stable discharged home. Prescription for Xanax I Imodium and Zofran transmitted to the pharmacy. She will continue all her previous home medications and follow up with the primary Dr and GI Dr. Rosy Little if the diarrhea still persists Consults/Reason for consult None Operations or Procedures None Condition at Discharge: Fair Final Diagnosis/Problems List Sepsis secondary to acute urinary tract infection Mild Acute urinary tract infection: Blood cultures negative, urine cultures negative , continue Rocephin History of lupus Acute hypokalemia potassium 2.7: Replace potassium consult for Dr. 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 Chronic pain syndrome: Percocet History of fall August 2024 seen in [facility] transfer to [facility] with fracture right orbit right shoulder and left knee History of dysphagia with G-tube placement and subsequent removal Anxiety: Xanax Patient was recently in [facility] Acute diarrhea resolving, C diff neg Discharge Disposition: Home Discharge Instruct/Medications Diet: Cardiac 2g Na,low cholest Activity: No Restrictions, As Tolerated Follow Up/Referral: Follow up with the primary Dr in one week Resume all previous medications Follow up with GI Dr. Rosy Little if the diarrhea still persists 35 (Time taken for discharge summary 35 minutes) Discharge Statement: "Patient was advised to return to the ER or call 911 if any headaches, dizziness, shortness of breath, chest pain, abdominal pain, bleeding, fevers, or worsening of medical condition. Patient was counseled about treatment plan, medications, possible side effects, patientverbalized understanding. All questions were answered to the best of my ability. This discharge took greater then 30 minutes in planning, reviewing documentation, counseling the patient, and discussing with other team members." ASSESSMENT ASSESSMENT Hospital Course Improved Assessment Sepsis secondary to acute urinary tract infection Mild Acute urinary tract infection: Blood cultures negative, urine cultures negative , continue Rocephin History of lupus Acute hypokalemia potassium 2.7: Replace potassium consult for Dr. 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
[2024-12-07 13:00] VITALS: BP 109/62; PULSE 76; RESP 18; O2SAT 94
== END 2024-12-07 16:46 | disposition home or self-care (01) | DRG 872 ==
LOC: ER 17:32 → EDBD 17:32 → OVERFLOW 22:56 → EAST 12-02 02:38
PROVIDERS: ADMIT Family Medicine; ATTEND Family Medicine
DX: A41.9 Sepsis, unspecified organism (principal); N39.0 Urinary tract infection, site not specified; A04.72 Enterocolitis due to Clostridium difficile, not specified as recurrent; Z16.29 Resistance to other single specified antibiotic; E87.6 Hypokalemia; F32.A Depression, unspecified; G89.4 Chronic pain syndrome; F41.9 Anxiety disorder, unspecified; D50.9 Iron deficiency anemia, unspecified; E83.42 Hypomagnesemia; Z82.49 Family history of ischemic heart disease and other diseases of the circulatory system; Z82.0 Family history of epilepsy and other diseases of the nervous system; Z79.899 Other long term (current) drug therapy
CPT/HCPCS: 36415; 74176; 76775; 80048; 80053; 81001; 83605; 83735; 84132; 84484; 85025; 87040; 87086; 87493; 93005; 96365; G0378

== ENCOUNTER → 2025-03-29 | Outpatient (CLI) | payer OTHER, MEDICAID ==
[~2025-03-29] MED LIST: ALPR0.5T PO; ALPR1TAB2 PO; GABA300C PO; LOPE2CAP16 PO; ZOFR4T PO
[2025-03-29 10:23] LABS: Hematocrit 28.2 % (36.0-46.0); Hemoglobin 9.0 g/dL (12.2-16.2); Mean Corpuscular Hemoglobin 22.0 pg (28.0-32.0); Mean Corpuscular Volume 68.8 fL (80.0-100.0); Nucleated Red Blood Cells % 0.0 %
[2025-03-29 10:56] LABS: Alanine Aminotransferase 14 U/L (7-40); Albumin 4.5 g/dL (3.2-4.8); Alkaline Phosphatase 49 U/L (46-116); Anion Gap 7 (5-15); BUN/Creatinine Ratio 14.7 (10.0-20.0); Blood Urea Nitrogen 11 mg/dL (9-23); Calcium 9.1 mg/dL (8.7-10.4); Carbon Dioxide 27 mmol/L (20-31); Chloride 103 mmol/L (98-107); Glucose 94 mg/dL (74-106); Potassium 3.5 mmol/L (3.5-5.1); Sodium 137 mmol/L (136-145); Total Protein 6.7 g/dL (5.7-8.2); Triglycerides 79 mg/dL (< 150)
[2025-03-29 10:57] LABS: Bilirubin, Total 0.4 mg/dL (0.2-1.0); Cholesterol 195 mg/dL (< 200)
[2025-03-29 11:14] LABS: HDL Cholesterol 93 mg/dL (40-59)
[2025-03-30 10:54] LABS: Hepatitis A Total Antibody Positive (Negative); Hepatitis B Surface Antigen Negative (Negative)
[2025-03-30 10:55] LABS: Hepatitis C Antibody Negative (Negative)
== END | disposition home or self-care (01) ==
LOC: LAB 09:55
PROVIDERS: ATTEND Licensed Practical Nurse
DX: I10 Essential (primary) hypertension (principal); E78.2 Mixed hyperlipidemia; E55.9 Vitamin D deficiency, unspecified; Z13.1 Encounter for screening for diabetes mellitus; Z13.29 Encounter for screening for other suspected endocrine disorder
CPT/HCPCS: 36415; 80053; 80061; 82043; 82306; 83036; 84443; 85025; 86704; 86706; 86708; 86803; 87340

== ENCOUNTER 2025-07-17 11:07 | Outpatient (CLI) | payer OTHER, MEDICAID | END 2025-07-17 17:00 | disposition home or self-care (01) | LOC: Rad HDHVI 11:07 | PROVIDERS: ATTEND Internal Medicine Cardiovascular Disease | DX: I08.3 Combined rheumatic disorders of mitral, aortic and tricuspid valves (principal); I10 Essential (primary) hypertension; I25.3 Aneurysm of heart | CPT/HCPCS: 93306 ==

== ENCOUNTER 2025-07-17 12:07 | Outpatient (CLI) | payer OTHER, MEDICAID ==
[2025-07-17 12:48] LABS: Hematocrit 32.7 % (36.0-46.0); Hemoglobin 10.4 g/dL (12.2-16.2); Mean Corpuscular Hemoglobin 23.4 pg (28.0-32.0); Mean Corpuscular Volume 73.9 fL (80.0-100.0); Nucleated Red Blood Cells % 0.1 %
[2025-07-17 12:58] LABS: Alanine Aminotransferase 12 U/L (7-40); Alkaline Phosphatase 63 U/L (46-116); Anion Gap 6 (5-15); BUN/Creatinine Ratio 18.2 (10.0-20.0); Blood Urea Nitrogen 12 mg/dL (9-23); Calcium 9.3 mg/dL (8.7-10.4); Carbon Dioxide 31 mmol/L (20-31); Chloride 106 mmol/L (98-107); Glucose 79 mg/dL (74-106); Potassium 4.2 mmol/L (3.5-5.1); Sodium 143 mmol/L (136-145); Total Protein 6.9 g/dL (5.7-8.2)
[2025-07-17 12:59] LABS: Albumin 4.2 g/dL (3.2-4.8); Bilirubin, Total 0.4 mg/dL (0.2-1.0); Iron 28.0 ug/dL (50-170)
[2025-07-17 13:01] LABS: Ferritin 11.7 ng/mL (10-291); Total Iron Binding Capacity 381.0 ug/dL (250-425)
[2025-07-17 14:34] LABS: Anisocytosis Moderate; Ovalocytes FEW
== END 2025-07-17 17:00 | disposition home or self-care (01) ==
LOC: LAB 12:07
PROVIDERS: ATTEND Licensed Practical Nurse
DX: D50.0 Iron deficiency anemia secondary to blood loss (chronic) (principal); D70.9 Neutropenia, unspecified; R53.83 Other fatigue
CPT/HCPCS: 36415; 80053; 82607; 82728; 82746; 83540; 83550; 85025